=== PATIENT | female | born 1995 | race Caucasian/White ===

== ENCOUNTER 2022-03-11 10:33 | Emergency (ER) | payer OTHER, SELFPAY ==
[2022-03-11 10:41] VITALS: BP 154/102; PULSE 80; RESP 14; TEMP 37; O2SAT 100
--- NOTE | 2022-03-11 10:45 | ED.BACK ---
HPI - Back Pain/Injury General Chief Complaint: Back Pain/Injury Stated Complaint: Back Pain Time Seen by Provider: 03/11/22 10:45 Source: patient Mode of arrival: ambulatory Limitations: no limitations History of Present Illness HPI Narrative: 26-year-old female presents with complaint of right-sided sciatica radiating to right leg. Reports that she has a history of sciatica and back surgery related to bulging disc. States that she had a vaginal 6 weeks ago. Was doing dishes 2 nights ago and felt sudden pain to right SI joint. Denies numbness tingling. No weakness to lower extremities. No loss of bowel or bladder. States that she had a few gabapentin left so she took those and has also been taking ibuprofen. Ambulatory with steady gait. Denies urinary symptoms. All systems reviewed and negative except as noted above. Related Data Home Medications Medication Instructions Recorded Confirmed docusate sodium 100 mg tablet 100 mg PO DAILY 03/11/22 03/11/22 ferrous sulfate 325 mg (65 mg 325 mg PO DAILY 03/11/22 03/11/22 iron) tablet nifedipine 60 mg tablet,extended 60 mg PO DAILY 03/11/22 03/11/22 release Allergies Allergy/AdvReac Type Severity Reaction Status Date / Time No Known Allergies Allergy Verified 03/11/22 10:51 Review of Systems Review of Systems: CONSTITUTIONAL: Denies fever, chills, or sweats. EYES: Denies visual changes, redness, or discharge. ENT: Denies rhinorrhea, congestion, sore throat, or otalgia. CARDIOVASCULAR: Denies chest pain, palpitations, or edema. RESPIRATORY: Denies cough or dyspnea. GASTROINTESTINAL: Denies abdominal pain, nausea, vomiting, or diarrhea. GENITOURINARY: Denies dysuria or hematuria. SKIN: Denies rash or itching. MUSCULOSKELETAL: Reports right-sided back pain with radiation to right leg. NEUROLOGIC: Denies headache, numbness, or weakness. PSYCHIATRIC: Denies anxiety or depression. All other systems reviewed are negative, except as documented in HPI. PMFSH Comments At time of signature, agree with nursing past medical, surgical, social and family history. There is no relevant family history pertinent to the presenting complaint. Exam Narrative: GENERAL: This is a well-nourished, well-developed patient, in no apparent distress. HEAD: normocephalic, atraumatic. EYES: PERRL. Sclera clear/white. Vision is grossly intact. EARS: External ears normal NOSE: External nose normal NECK: Neck supple, non-tender without lymphadenopathy, masses or thyromegaly. CARDIOVASCULAR: Regular rate and rhythm without murmurs, gallops, or rubs. RESPIRATORY: Clear to auscultation. Breath sounds equal bilaterally. No wheezes, rales, or rhonchi. SKIN: warm, Dry, intact with no suspicious lesions or rash, good texture and turgor. NEURO: awake, alert, and oriented to person, place and time. There were no obvious focal neurologic abnormalities. EXTREMITIES: No joint tenderness, effusion, or edema noted. BACK: Right SI joint tenderness on palpation. Full range of motion to back. Positive right straight leg raise. Lower extremity strength 5/5. Course Course Level of Care: Express Care Visit Vital Signs Vital signs: Vital Signs Temperature 37.0 C 03/11/22 10:41 Pulse Rate 80 03/11/22 10:41 Respiratory Rate 14 03/11/22 10:41 Blood Pressure 154/102 H 03/11/22 10:41 Pulse Oximetry 100 03/11/22 10:41 Oxygen Delivery Room Air 03/11/22 10:41 Temperature 37.0 C 03/11/22 10:53 Pulse Rate 80 03/11/22 10:53 Respiratory Rate 14 03/11/22 10:53 Blood Pressure 154/102 H 03/11/22 10:53 Pulse Oximetry 100 03/11/22 10:53 Oxygen Delivery Room Air 03/11/22 10:53 Reviewed MDM - Back Pain/Injury MDM Narrative Medical decision making narrative: Patient is aware of diagnosis, understands and agrees to treatment plan. Anticipatory guidance given. Patient agrees to follow-up as directed and is aware of reasons to seek care at the emergency department.
[2022-03-11 10:53] VITALS: BP 154/102; PULSE 80; RESP 14; TEMP 37; O2SAT 100
== END 2022-03-11 11:01 | disposition home or self-care (01) ==
PROVIDERS: Emergency Provider Nurse Practitioner Family
DX: M54.9 Dorsalgia, unspecified (principal); M54.31 Sciatica, right side; I10 Essential (primary) hypertension
CPT/HCPCS: 99211; G0463

== ENCOUNTER 2024-12-09 16:51 | Emergency (ER) | payer OTHER, SELFPAY ==
--- OUTSIDE RECORDS SUMMARY | 2024-12-09 16:53 | XMS_ITS | Clinical Summary ---
Author Organization [facility] Address [address] [place] [address] Phone Care Team Providers Care Vehicle Care Specialist Name Role Phone Provider, None Primary Care Provider Unavailabl e Allergies No known active allergies Medications methocarbamol (ROBAXIN) 500 MG Tablet Take 2 Tabs by mouth 4 times daily as needed. 60 Tab 8 Active Additional Information Patient not taking.Reported on 07/15/2020 methylPREDNISol one (MEDROL DOSPACK) 4 MG Tablet Therapy Pack See product package insert for dosing schedule 21 Tab 8 Active Additional Information Patient not taking.Reported on 07/15/2020 traMADol (ULTRAM) 50 MG Tablet Take 50 mg by mouth every 6 hours as needed for Pain. Active acetaminophen (TYLENOL) 500 MG Tablet Take 500 mg by mouth every 4 hours as needed for Pain. Active traMADol (ULTRAM) 50 MG Tablet Take 1 Tab by mouth every 6 hours as needed for Pain. 30 Tab 8 Active Additional Information Patient not taking.Reported on 07/15/2020 HYDROcodone-jad taminophen (NORCO) 5-325 MG Tablet Take 1 Tab by mouth every 6 hours as needed for Moderate or more severe pain. 12 Tab 8 Active Additional Information Patient not taking.Reported on 07/15/2020 ibuprofen (MOTRIN) 600 MG Tablet Take 1 Tab by mouth every 6 hours as needed for Moderate or more severe pain. 60 Tab 8 Active Additional Information Patient not taking.Reported on 07/15/2020 GABAPENTIN PO Take by mouth. A ctive MELOXICAM PO Take by mouth. Ac tive predniSONE (DELTASONE) 50 MG Tablet Take 1 Tab by mouth daily. 5 Tab 9 Active Additional Information Patient not taking.Reported on 07/15/2020 HYDROcodone-jad taminophen (NORCO) 5-325 MG Tablet Take 1 Tab by mouth every 6 hours as needed for Moderate or more severe pain. 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 Gender Identity Not on file Sexual Orientation Not on file Last Filed Vital Signs Vital Sign Reading Time Taken Comments Blood Pressure 130/90 07/15/2020 5:21 PM BARBER SHOP OPERATOR Pulse 93 07/15/2020 5:21 PM BARBER SHOP OPERATOR Temperature 36.4 C (97.6 F) 07/15/2020 5:21 PM BARBER SHOP OPERATOR Respiratory Rate 20 07/15/2020 5:21 PM BARBER SHOP OPERATOR Oxygen Saturation 98% 07/15/2020 5:21 PM BARBER SHOP OPERATOR Inhaled Oxygen Concentration - - Weight 110.2 kg (243 lb) 02/04/2019 9:43 PM CDT Height 167.6 cm (5' 6 ) 02/04/2019 9:43 PM CDT Body Mass Index 39.22 02/04/2019 9:43 PM CDT Plan of Treatment Health Maintenance Due Date Last Done Comments Hepatitis C Virus (HCV) Screening 1993 Pap Smear 2014 Cervical Cancer Screening (CCS) 2023 HPV/Cotest 2023 Influenza Immunization (#1) 2024 06/13/2016, 1 09/05/2013 SARS-COV-2 Immunization ( season) 2024 Respiratory Syncytial Virus (RSV) Immunization (Adult) (1 - 1-dose 75+ series) 2068 Hepatitis B Immunization Completed 994, 1993, 1993 Pneumococcal Immunization Combined Aged Out 09/16/2014 No longer eligible based on patient's age to complete this topic DTaP/Tdap/Td Immunization Discontinued 2021, 10/06/2016, 07/06/2014, Additional history exists TdaP Immunization Completed 12/16/2021, , 07/06/2014, Additional history exists Meningococcal Immunization (ACWY) Aged Out No longer eligible based on patient's age to complete this topic Rotavirus Immunization Aged Out No lo nger eligible based on patient's age to complete this topic Insurance MEDICAID [employer]NA [facility] Care Teams Vehicle Care Specialist Relationship Specialty Start Date End Date Provider, None [place] PCP - General 10/04/17
--- OUTSIDE RECORDS SUMMARY | 2024-12-09 16:53 | XMS_ITS | Clinical Summary ---
Author Organization [facility] Address [address] [place] [address] Care Team Providers Care Helicopter Repairer Name Role Phone Unavailable Primary Care Provider Unavailabl e Source Comments [facility],non-owned Affiliates and Associated Physician Practices is amultiple site organization consisting of ambulatory clinics and hospital sitesin [place], [place], [place] and [place]. This disclosure is being madepursuant to the Care Everywhere program and may not contain all information available regarding this patient. Last updated 18.[employer] [facility] Allergies No known active allergies Medications * Be aware that medications may not be up to date on this document. Alwaysverify current medications with the patient. GABAPENTIN PO Active MELOXICAM PO Active Acetaminophen (TYLENOL 8 HOUR PO) Active Active Problems No known active problems Social History Tobacco Use Types Packs/Day Years Used Date Smoking Tobacco: Every Day Smokeless Tobacco: Never Comments Unknown Sex and Gender Information Value Date Recorded Sex Assigned at Not on file Legal Sex Female 11:30 AM CDT Gender Identity Not on file Sexual Orientation Not on file Last Filed Vital Signs Vital Sign Reading Time Taken Comments Blood Pressure - - Pulse - - Temperature - - Respiratory Rate - - Oxygen Saturation - - Inhaled Oxygen Concentration - - Weight 109.3 kg (241 lb) 02/27/2019 1:08 PM CDT Height 167.6 cm (5' 6 ) 02/27/2019 1:08 PM CDT Body Mass Index 38.9 02/27/2019 1:08 PM CDT Plan of Treatment Health Maintenance Due Date Last Done Comments PAP SMEAR 1993 HIV SCREENING 2008 HEPATITIS C SCREENING 05/04/2011 DTAP/TDAP/TD VACCINES (1 - Tdap) 2012 HEPATITIS B VACCINE (1 of 3 - 19+ 3-dose series) 2012 COVID-19 VACCINE (1 - 2023-2 5 season) 2024 DEPRESSION SCREENING 08/30/2024 INFLUENZA VACCINE (Season Ended) 2025 06/13/2016, 07/06/2014 ZOSTER VACCINE (1 of 2) 2043 HIB VACCINE Aged Out No longer eligi ble based on patient's age to complete this topic HPV VACCINE Aged Out No longer eligi ble based on patient's age to complete this topic MENINGOCOCCAL (Group B) VACCINE SHARED DECISION-MAKING Aged Out No longer eligible based on patient's age to complete this topic MENINGOCOCCAL GROUPS A/C/Y/W VACCINE Aged Out No longer eligible b ased on patient's age to complete this topic PNEUMOCOCCAL VACCINE Aged Out No long er eligible based on patient's age to complete this topic Insurance [facility]
--- OUTSIDE RECORDS SUMMARY | 2024-12-09 16:53 | XMS_ITS | Referral Summary ---
Author Organization [facility] Address [address] [place] [address] Care Team Providers Care Servicing Rep Name Role Phone No, Physician Primary Care Provider [phone] Sunny Ritter MD Unavailable Allergies No known active allergies Medications ibuprofen (ADVIL,MOTRIN) 600 mg tabletIndicatio ns:Cramps Take 1 tablet (600 mg total) by mouth every 6 (six) hours as needed for pain 30 tablet 1 02/25/2022 Active escitalopram (LEXAPRO) 10 mg tablet Take 10 mg by mouth daily Active phentermine 37.5 mg capsule Take 37.5 mg by mouth every morning Active NIFEdipine (NIFEdipine XL) 60 mg 24 hr tablet Take 60 mg by mouth daily Active Active Problems Problem Noted Date Diagnosed Date Encounter for sterilization 07/07/2022 Overview (07/07/2022): Added automatically from request for surgery [id number] RhD negative 11/04/2021 Recurring right L5-S1 disc h erniation with right S1 radiculopathy 08/26/2018 S/P right L4-5 and L5-S1 microdiscectomy on 01/1301/13/2018 Immunizations Immunization Administration Dates Next Due Influenza, Trivalent, IM (MDV) 07/06/2014 MMR 02/25/2022(Deferred: No longer n eeded) Pneumococcal Polysaccharide PPV23 09/16/2014 Rho (D) Immune Globulin 01/13/2017,09/15/2014 Tdap 07/06/2014 Social History Tobacco Use Types Packs/Day Years Used Date Smoking Tobacco: Every Day Cigarettes Last attempted to quit: 01/10/2018 Smokeless Tobacco: Never Tobacco Cessation:Ready to Q uit: Not Asked; Counseling Given: Not Answered Comments:between 1/2 pack to 1 pack daily Alcohol Use Standard Drinks/Week Comments No 0 (1 standard drink = 0.6 oz pur e alcohol) AUDIT-C Answer Date Recorded Q1: How often do you have a drink containing alc ohol? Monthly or less 11/09/2022 Q2: How many drinks containi ng alcohol do you have on a typical day when you are drinking? 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 Not on file Not on file Not on file Last Filed Vital Signs Vital Sign Reading Time Taken Comments Blood Pressure 120/70 02/25/2022 8:00 AM CDT Pulse 78 02/25/2022 8:00 AM CDT Temperature 36.7 C (98.1 F) 02/25/2022 8:00 AM CDT Respiratory Rate 18 02/25/2022 8:00 AM CDT Oxygen Saturation 98% 02/24/2022 7:30 AM CDT Inhaled Oxygen Concentration - - Weight 112.9 kg (249 lb) 02/17/2022 4:35 PM CDT Height 167.6 cm (5' 6 ) 02/17/2022 4:35 PM CDT Body Mass Index 40.19 02/17/2022 4:35 PM CDT Plan of Treatment Not on file Insurance [facility] [place] [employer] [employer] Advance Directives For more information, please contact: [phone] * Full Code (Latest Code Status on File) Date Activated Date Inactivated Comments 02/24/2022 5:06 AM 02/25/2022 4:41 PM * Full Code Date Activated Date Inactivated Comments 02/23/2022 6:35 PM 02/24/2022 5:06 AM Full CPR in case of cardiopulmonary arrest * Full Code Date Activated Date Inactivated Comments 02/23/2022 4:23 PM 02/23/2022 6:35 PM Full CPR in case of cardiopulmonary arrest Care Teams Servicing Rep Relationship Specialty Start Date End Date No, Physician PCP - General 10/04/17 Sunny Ritter MD [address] [place] [address] [place] [address] Conveyor Tender Obstetrics and Gynecology 02/25/22
--- OUTSIDE RECORDS SUMMARY | 2024-12-09 16:53 | XMS_ITS | Data Portability ---
Author Organization [facility] PIEROTom Causey Address [address] [place] [address] Care Team Providers Care Waiter/Waitress Take Out Name Role Phone NEVA BUSTOS Primary Care Provider Unavailab le Assessment No assessment recorded. Plan of Treatment Reminders Order Date Submit Date Provider Last Modified By Organization Details Last Modified Time Details Appointments None recorded. Lab CBC w/ auto diff 2022 023 [facility], [address] [address], [place], [address], 3 20:35:57 vitamin D, 25-hydroxy, total, serum 2022 023 [facility], [address] [place] [address] 2, [place], [address], 3 07:37:42 lipid panel, serum 2022 023 [facility], [address] [place] [address] 2, [place], [address], 3 20:35:55 CMP, serum or plasma 2022 023 [facility], [address] [facility], [place], [address], 3 20:35:56 Referral None recorded. Procedures None recorded. Surgeries salpingecto my, laparoscopi c (SURG) 2021 023 travis [facility] ([facility]), [address] [place] [address] [place], [address], 2 15:46:08 Imaging None recorded. Medication Orders nicotine 14 mg/24 hr daily transdermal patch 2022 023 [id number] [address] [place], [address], 3 11:53:16 nifedipine ER 60 mg tablet,exte nded release 24 hr 2022 [address]23 [id number] [address] [place], [address], 3 09:55:53 escitalopra m 10 mg tablet 2022 023 [id number] [address] [place], [address], 3 11:43:58 escitalopra m 5 mg tablet 2022 023 [id number] [address] [place], [address], 3 11:43:58 Procardia XL 90 mg tablet,exte nded release 2021 022 [id number] [place], [address], 3 09:55:56 Patient TargetsNo targets recorded. Patient InstructionsNo instructions recorded. Reason for Referral None Reported. Results Created Date Observation Date Name Description Value Unit Range Abnormal Flag Note LastModifiedBy Organization Detail LastModifiedTime 02/11/20 22 02/10/2022 urina lysis , dipst ick Leukocytes Negati ve Not Available In-Office Order Internal Use Only DO Not Attach Compendium DO Not Attach Compendium, Do Not Delete/merge, [id number] 02/09/2022 10:53:46 02/11/20 22 02/10/2022 urina lysis , dipst ick Nitrite negati ve Not Available In-Office Order Internal Use Only DO Not Attach Compendium DO Not Attach Compendium, Do Not Delete/merge, 02/09/2022 10:53:46 02/11/20 22 02/10/2022 urina lysis , dipst ick Urobilinogen 1 Not Available In-Of fice Order Internal Use Only DO Not Attach Compendium DO Not Attach Compendium, Do Not Delete/merge, 02/09/2022 10:53:46 02/11/20 22 02/10/2022 urina lysis , dipst ick Protein 30 Not Available In-Office Order Internal Use Only DO Not Attach Compendium DO Not Attach Compendium, Do Not Delete/merge, 02/09/2022 10:53:46 02/11/20 22 02/10/2022 urina lysis , dipst ick pH 6.5 Not Available In-Office Order Internal Use Only DO Not Attach Compendium DO Not Attach Compendium, Do Not Delete/merge, 02/09/2022 10:53:46 02/11/20 22 02/10/2022 urina lysis , dipst ick Blood Negati ve Not Available In-Office Order Internal Use Only DO Not Attach Compendium DO Not Attach Compendium, Do Not Delete/merge, 02/09/2022 10:53:46 02/11/20 22 02/10/2022 urina lysis , dipst ick Specific Switchback 1.020 Not Available In-Off ice Order Internal Use Only DO Not Attach Compendium DO Not Attach Compendium, Do Not Delete/merge, 02/09/2022 10:53:46 02/11/20 22 02/10/2022 urina lysis , dipst ick Ketone Negati ve Not Available In-Office Order Internal Use Only DO Not Attach Compendium DO Not Attach Compendium, Do Not Delete/merge, 02/09/2022 10:53:46 02/11/20 22 02/10/2022 urina lysis , dipst ick Bilirubin Negati ve Not Available In-Office Order Internal Use Only DO Not Attach Compendium DO Not Attach Compendium, Do Not Delete/merge, 02/09/2022 10:53:46 02/11/20 22 02/10/2022 urina lysis , dipst ick Glucose Negati ve Not Available In-Office Order Internal Use Only DO Not Attach Compendium DO Not Attach Compendium, Do Not Delete/merge, 02/09/2022 10:53:46 02/11/20 22 02/10/2022 urina lysis , dipst ick Appearance Clear Not Available In-Offi ce Order Internal Use Only DO Not Attach Compendium DO Not Attach Compendium, Do Not Delete/merge, 02/09/2022 10:53:46 02/11/20 22 02/10/2022 urina lysis , dipst ick Color Yellow Not Available In-Office Order Internal Use Only DO Not Attach Compendium DO Not Attach Compendium, Do Not Delete/merge, 02/09/2022 10:53:46 02/18/20 22 02/17/2022 urina lysis , dipst ick Leukocytes Trace Not Available In-Offi ce Order Internal Use Only DO Not Attach Compendium DO Not Attach Compendium, Do Not Delete/merge, 02/17/2022 09:25:25 02/18/20 22 02/17/2022 urina lysis , dipst ick Nitrite negati ve Not Available In-Office Order Internal Use Only DO Not Attach Compendium DO Not Attach Compendium, Do Not Delete/merge, 02/17/2022 09:25:25 02/18/20 22 02/17/2022 urina lysis , dipst ick Urobilinogen .2 Not Available In-Of fice Order Internal Use Only DO Not Attach Compendium DO Not Attach Compendium, Do Not Delete/merge, 02/17/2022 09:25:25 02/18/20 22 02/17/2022 urina lysis , dipst ick Protein Negati ve Not Available In-Office Order Internal Use Only DO Not Attach Compendium DO Not Attach Compendium, Do Not Delete/merge, 02/17/2022 09:25:25 02/18/20 22 02/17/2022 urina lysis , dipst ick pH 7.0 Not Available In-Office Order Internal Use Only DO Not Attach Compendium DO Not Attach Compendium, Do Not Delete/merge, 02/17/2022 09:25:25 02/18/20 22 02/17/2022 urina lysis , dipst ick Blood Negati ve Not Available In-Office Order Internal Use Only DO Not Attach Compendium DO Not Attach Compendium, Do Not Delete/merge, 02/17/2022 09:25:25 02/18/20 22 02/17/2022 urina lysis , dipst ick Specific Switchback 1.030 Not Available In-Off ice Order Internal Use Only DO Not Attach Compendium DO Not Attach Compendium, Do Not Delete/merge, 02/17/2022 09:25:25 02/18/20 22 02/17/2022 urina lysis , dipst ick Ketone Negati ve Not Available In-Office Order Internal Use Only DO Not Attach Compendium DO Not Attach Compendium, Do Not Delete/merge, 02/17/2022 09:25:25 02/18/20 22 02/17/2022 urina lysis , dipst ick Bilirubin Negati ve Not Available In-Office Order Internal Use Only DO Not Attach Compendium DO Not Attach Compendium, Do Not Delete/merge, 02/17/2022 09:25:25 02/18/20 22 02/17/2022 urina lysis , dipst ick Glucose Negati ve Not Available In-Office Order Internal Use Only DO Not Attach Compendium DO Not Attach Compendium, Do Not Delete/merge, 02/17/2022 09:25:25 02/18/20 22 02/17/2022 urina lysis , dipst ick Appearance Slight ly Cloudy Not Available In-Office Order Internal Use Only DO Not Attach Compendium DO Not Attach Compendium, Do Not Delete/merge, 02/17/2022 09:25:25 02/18/20 22 02/17/2022 urina lysis , dipst ick Color Yellow Not Available In-Office Order Internal Use Only DO Not Attach Compendium DO Not Attach Compendium, Do Not Delete/merge, 02/17/2022 09:25:25 09/24/19 23 09/24/2022 LIPID PANEL cholesterol, total 205.2 mg/dL 140.0- 200.0 above high normal Not Available [facility] [address] [place] [address], [address], 09/24/2022 20:35:55 09/24/19 23 09/24/2022 LIPID PANEL triglyceride s 159 mg/dL <=150 above high normal Not Available [facility] Department [address] [place] [address], [address], 09/24/2022 20:35:55 09/24/19 23 09/24/2022 LIPID PANEL HDL cholesterol 54.7 mg/dL 40.0-1 00.0 Not Available [facility] Department [address] [place] [address], [address], 09/24/2022 20:35:55 09/24/19 23 09/24/2022 LIPID PANEL VLDL cholesterol priya 31.80 mg/dL 5.00-4 0.00 Not Available [facility] Department [address] [place] [address], [address], 09/24/2022 20:35:55 09/24/19 23 09/24/2022 LIPID PANEL LDL chol calc ([facility]) 122.5 Not Available [facility] Department [address] [place] [address], [address], 09/24/2022 20:35:55 09/24/19 23 09/24/2022 COMP. METAB OLIC PANEL (14) glucose 85 mg/dL 65-99 ANION GP 23.0 mmol/ L N OSMOL 285.0 mOsM/ L N REFER ENCE RANGE : 275.0 -301. 0 Not Available [facility] Department [address] [place], [address], 09/24/2022 20:35:56 09/24/19 23 09/24/2022 COMP. METAB OLIC PANEL (14) BUN 9 mg/dL 8-26 Not Available [facility] Department [address] [place] [address], [address], 09/24/2022 20:35:56 09/24/19 23 09/24/2022 COMP. METAB OLIC PANEL (14) creatinine 0.72 mg/dL 0.50-1 .40 Not Available [facility] [address] [place], [address], 09/24/2022 20:35:56 09/24/19 23 09/24/2022 COMP. METAB OLIC PANEL (14) eGFR 116 mL/mi n/1.7 3 >=60 Not Available [facility] Department [address] [place] [address], [address], 09/24/2022 20:35:56 09/24/19 23 09/24/2022 COMP. METAB OLIC PANEL (14) BUN/creatini ne ratio 12.6 Not Available [facility] Department [address] [place] [address], [address], 09/24/2022 20:35:56 09/24/19 23 09/24/2022 COMP. METAB OLIC PANEL (14) sodium 144.0 mmol/ L 136.0- 144.0 Not Available [facility] Department [address] [place] [address], [address], 09/24/2022 20:35:56 09/24/19 23 09/24/2022 COMP. METAB OLIC PANEL (14) potassium 4.6 mmol/ L 3.5-5. 3 Not Available [facility] Department [address] [place], [address], 09/24/2022 20:35:56 09/24/19 23 09/24/2022 COMP. METAB OLIC PANEL (14) chloride 105 mmol/ l 101-11 1 Not Available [facility] Department [address] [place] [address], [address], 09/24/2022 20:35:56 09/24/19 23 09/24/2022 COMP. METAB OLIC PANEL (14) carbon dioxide, total 20.6 mmol/ L 21.0-3 2.0 below low normal Not Available [facility] [address] [place], [address], 09/24/2022 20:35:56 09/24/19 23 09/24/2022 COMP. METAB OLIC PANEL (14) calcium 9.7 mg/dL 8.2-10 .0 Not Available [facility] [address] [place], [address], 09/24/2022 20:35:56 09/24/19 23 09/24/2022 COMP. METAB OLIC PANEL (14) protein, total 7.3 g/dL 6.7-8. 2 Not Available [facility] [address] [place], [address], 09/24/2022 20:35:56 09/24/19 23 09/24/2022 COMP. METAB OLIC PANEL (14) albumin 4.6 g/dL 3.5-5. 5 Not Available [facility] [address] [place], [address], 09/24/2022 20:35:56 09/24/19 23 09/24/2022 COMP. METAB OLIC PANEL (14) globulin, total 2.7 g/dL 1.5-4. 5 Not Available [facility] [address] [place], [address], 09/24/2022 20:35:56 09/24/19 23 09/24/2022 COMP. METAB OLIC PANEL (14) A/G ratio 1.7 Not Available [facility] Department [address] [place], [address], 09/24/2022 20:35:56 09/24/19 23 09/24/2022 COMP. METAB OLIC PANEL (14) bilirubin, total 0.2 mg/dL 0.0-1. 2 Not Available [facility] [address] [place], [address], 09/24/2022 20:35:56 09/24/19 23 09/24/2022 COMP. METAB OLIC PANEL (14) alkaline phosphatase 90.2 IU/L 42.0-1 21.0 Not Available [facility] [address] [place], [address], 09/24/2022 20:35:56 09/24/19 23 09/24/2022 COMP. METAB OLIC PANEL (14) AST (SGOT) 13.1 U/L 10.0-4 2.0 Not Available [facility] [address] [place], [address], 09/24/2022 20:35:56 09/24/19 23 09/24/2022 COMP. METAB OLIC PANEL (14) ALT (SGPT) 15.6 U/L 10.0-6 0.0 Not Available [facility] [address] [place], [address], 09/24/2022 20:35:56 09/24/19 23 09/24/2022 CBC WITH DIFFE RENTI AL/PL ATELE T WBC 8.5 K/uL 3.4-10 .8 Not Available [facility] [address] [place], [address], 09/24/2022 20:35:57 09/24/19 23 09/24/2022 CBC WITH DIFFE RENTI AL/PL ATELE T RBC 5.2 M/uL 4.2-5. 4 Not Available [facility] [address] [place], [address], 09/24/2022 20:35:57 09/24/19 23 09/24/2022 CBC WITH DIFFE RENTI AL/PL ATELE T hemoglobin 14.4 g/dL 11.5-1 5.5 Not Available [facility] [address] [place], [address], 09/24/2022 20:35:57 09/24/19 23 09/24/2022 CBC WITH DIFFE RENTI AL/PL ATELE T hematocrit 44.0 % 36.0-4 8.0 Not Available [facility] [address] [place], [address], 09/24/2022 20:35:57 09/24/19 23 09/24/2022 CBC WITH DIFFE RENTI AL/PL ATELE T MCV 85 fL 80-95 Not Available [facility] Department [address] [place], [address], 09/24/2022 20:35:57 09/24/19 23 09/24/2022 CBC WITH DIFFE RENTI AL/PL ATELE T MCH 28 pg 27-32 Not Available [facility] [address] [place], [address], 09/24/2022 20:35:57 09/24/19 23 09/24/2022 CBC WITH DIFFE RENTI AL/PL ATELE T MCHC 33 g/dL 32-36 Not Available [facility] [address] [place], [address], 09/24/2022 20:35:57 09/24/19 23 09/24/2022 CBC WITH DIFFE RENTI AL/PL ATELE T RDW 13.9 % 11.5-1 4.5 Not Available [facility] [address] [place], [address], 09/24/2022 20:35:57 09/24/19 23 09/24/2022 CBC WITH DIFFE RENTI AL/PL ATELE T platelets 292 K/uL 155-37 9 MPV 11.0 FL 8.9-1 2.7 N Not Available [facility] [address] [place], [address], 09/24/2022 20:35:57 09/24/19 23 09/24/2022 CBC WITH DIFFE RENTI AL/PL ATELE T neutrophils 52.0 % 40.0-7 4.0 Not Available [facility] [address] [place], [address], 09/24/2022 20:35:57 09/24/19 23 09/24/2022 CBC WITH DIFFE RENTI AL/PL ATELE T lymphs 37.1 % 14.0-4 6.0 Not Available [facility] [address] [place], [address], 09/24/2022 20:35:57 09/24/19 23 09/24/2022 CBC WITH DIFFE RENTI AL/PL ATELE T monocytes 8.7 % 4.0-12 .0 Not Available [facility] [address] [place], [address], 09/24/2022 20:35:57 09/24/19 23 09/24/2022 CBC WITH DIFFE RENTI AL/PL ATELE T eos 1 % 0-5 Not Available [facility] [address] [place], [address], 09/24/2022 20:35:57 09/24/19 23 09/24/2022 CBC WITH DIFFE RENTI AL/PL ATELE T basos 0.8 % 0.0-1. 0 Not Available [facility] [address] [place], [address], 09/24/2022 20:35:57 09/24/19 23 09/24/2022 CBC WITH DIFFE RENTI AL/PL ATELE T neutrophils (absolute) 4.4 K/uL 1.4-7. 0 Not Available [facility] [address] [place], [address], 09/24/2022 20:35:57 09/24/19 23 09/24/2022 CBC WITH DIFFE RENTI AL/PL ATELE T lymphs (absolute) 3.2 K/uL 0.7-3. 1 above high normal Not Available [facility] [address] [place], [address], 09/24/2022 20:35:57 09/24/19 23 09/24/2022 CBC WITH DIFFE RENTI AL/PL ATELE T monocytes(ab solute) 0.7 K/uL 0.1-0. 9 Not Available [facility] [address] [place], [address], 09/24/2022 20:35:57 09/24/19 23 09/24/2022 CBC WITH DIFFE RENTI AL/PL ATELE T eos (absolute) 0.1 K/uL 0.0-0. 4 Not Available [facility] [address] [place], [address], 09/24/2022 20:35:57 09/24/19 23 09/24/2022 CBC WITH DIFFE RENTI AL/PL ATELE T baso (absolute) 0.1 K/uL 0.0-0. 3 Not Available [facility] Department [address] [place], [address], 09/24/2022 20:35:57 09/24/19 23 09/24/2022 CBC WITH DIFFE RENTI AL/PL ATELE T immature granulocytes 0.1 % Not Available [facility] Department [address] [place], [address], 09/24/2022 20:35:57 09/24/19 23 09/24/2022 CBC WITH DIFFE RENTI AL/PL ATELE T immature grans (abs) 0.0 K/uL Not Available [facility] Department [address] [place], [address], 09/24/2022 20:35:57 09/24/19 23 09/24/2022 CBC WITH DIFFE RENTI AL/PL ATELE T NRBC 0 % Not Available [facility] Department [address] [place], [address], 09/24/2022 20:35:57 09/24/19 23 09/25/2022 VITAM IN D, 25-HY DROXY vitamin D, 25-hydroxy 15.2 NG/mL 30.0-1 00.0 below low normal Vitam in D defic iency has been defin ed by the Insti tute of Medic ine and an Endoc rine Socie ty pract ice guide line as a level of serum 25-OH vitam in D less than 20 ng/mL (1,2) . The Endoc rine Socie ty went on to furth er defin e vitam in D insuf ficie ncy as a level betwe en 21 and 29 ng/mL (2). 1. IOM (Inst itute of Medic ine). 2010. Brigida ry refer ence arash es for calci um and D. Hazel ohara [place]: [facility] . 2. Surjit scott MF, Selvin lopez [place], [place] off-F errar i BAJWA, et al. Evalu ation , treat ment, and preve ntion of vitam in D defic iency : an Endoc rine Socie ty clini priya pract ice guide line. JCEM. 2010; 96(7) :1911 -30. Not Available [facility] ([facility]) [address] [facility], [place], [address], 09/25/2022 07:37:42 Result Notes None recorded. Problems Name Problem SNOMED Code Status Onset Date Resolution Date Notes Provider Name and Address Organization Details Recorded Time 74523328 Completed 202004/24/2021 Constance Roper LPN [place], [place] - [facility] 2 13:49:45 Obesity 793522307 Completed Weight gain 11-20 lbs disc. Lynne King [place], [place] [facility] 1 15:06:20 Smoker 64960326 Completed SOFÍA Rust, [place] - [facility] 1 15:06:20 Grand multipara 18425572 Completed Lynne King [place] [facility] 1 15:06:20 Sterilizat ion requested 791133046 Completed 2020 Lynne King [place] [facility] 1 15:06:20 RhD negative 683154525 Completed Rhogam @ 28 wks Lynne King [place], [place] [facility] 1 15:06:20 23643870 Completed 202006/08/2022 Constance Roper LPN [place] [facility] 2 13:49:45 RhD negative 408333030 Completed s/p rhogam at 28 weeks Constance Roper LPN [place] [facility] 2 13:49:34 Abnormalit y of heart 439005489 Completed 202109/24/2022 Normal echo NEVA BUSTOS MD Attn: Gatito dong,[address] [place], [address], [place] - [facility] 3 11:54:46 Abnormalit y of heart 935213290 Completed 2021 Normal echo Constance Roper LPN [place] [facility] 2 13:49:34 Past history of gestationa l hypertensi on 499787855 Active 2022 NEVA BUSTOS MD Attn: Gatito dong,[address] [place], [address], [place] [facility] 3 11:56:10 Anxiety disorder 780987493 Active 2022 NEVA BUSTOS MD Attn: Gatito dong,[address] [place], [address], [place] [facility] 3 11:56:08 Nicotine dependence with current use 110430354 Active 2022 NEVA BUSTOS MD Attn: Gatito dong,[address] [place], [address], [place] [facility] 3 11:56:12 Lymphadeno rizwan 10871688 Completed 09/24/2022 NEVA BUSTOS MD Attn: Gatito dong,[address] [place], [address], [place] [facility] 3 11:54:44 Notes:lump under right armpi t Problem Notes None recorded. Procedures Surgical History Date Name Laterality Status Provider Name and Address Organization Details Recorded Time 1 Date of Last Pap Smear completed N[facility] Conde [facility] 09/24/2022 11:05:52 8 Back Surgery completed Lynne King [facility] 01/23/2021 09:53:25 Imaging Results None recorded. Procedure Notes None recorded. Medical Equipment None Reported. Allergies No known drug allergies Medications Name Sig Start Date Stop Date Status Note LastModified by Organization Details LastModified Time Prescriptio n - New 06/17 completed Not Available Not Available Not Available cyclobenzap rine 10 mg tablet TAKE 1 TABLET BY MOUTH THREE TIMES A DAY NEEDED FOR MUSCLE SPASM 06/17 completed Not Available Not Available Not Available amoxicillin 500 mg capsule TAKE ONE CAPSULE BY MOUTH FOUR TIMES A DAY UNTIL GONE 06/17 completed Not Available Not Available Not Available methocarbam ol 500 mg tablet 01/23 completed Not Available Not Available Not Available prednisone 10 mg tablet 01/23 completed Not Available Not Available Not Available nicotine 14 mg/24 hr daily transdermal patch APPLY 1 PATCH DAILY TO SKIN active Not Available Not Available No t Available Lidocaine Viscous 2 % mucosal solution USE 5ML ON TOOTH Q 4 H PRF TOOTH ACHE 01/23 completed Not Available Not Available Not Available hydrocodone 5 mg-acetamin ophen 325 mg tablet 01/23 completed Not Available Not Available Not Available meloxicam 15 mg tablet 01/23 completed Not Available Not Available Not Available prednisone 20 mg tablet TAKE 3 TABLETS TODAY, THEN 2 TABLETS DAILY FOR 3 DAYS THEN 1 TABLET DAILY FOR 3 DAYS. 06/17 completed Not Available Not Available Not Available metronidazo le 500 mg tablet active Not Available Not Available Not Available acetaminoph en 300 mg-codeine 30 mg tablet TK 1 T PO QID PRN P 01/23 completed Not Available Not Available Not Available hydrocodone 10 mg-acetamin ophen 325 mg tablet TAKE ONE TABLET BY MOUTH FOUR TIMES A DAY NEEDED FOR PAIN 06/17 completed Not Available Not Available Not Available tramadol 50 mg tablet 01/23 completed Not Available Not Available Not Available Macrobid 100 mg capsule Take 1 capsule every 12 hours by oral route. 02/04 completed Not Available Not Available Not Available Vitamin tablet Take 1 tablet every day by oral route. 01/23 completed Not Available Not Available Not Available oxycodone-a cetaminophe n 5 mg-325 mg tablet 01/23 completed Not Available Not Available Not Available amoxicillin 875 mg tablet TAKE 1 TABLET BY MOUTH TWICE A DAY FOR 10 DAYS active Not Available Not Available No t Available methocarbam ol 750 mg tablet 01/23 completed Not Available Not Available Not Available nifedipine ER 60 mg tablet,exte nded release 24 hr TAKE 1 TABLET BY MOUTH EVERY DAY 01/26 completed Not Available Not Available Not Available nifedipine ER 90 mg tablet,exte nded release 24 hr TAKE 1 TABLET BY MOUTH EVERY DAY 01/26 completed Not Available Not Available Not Available hydrocodone 7.5 mg-acetamin ophen 325 mg tablet TAKE 1 TABLET BY MOUTH EVERY 4 TO 6 HOURS NEEDED FOR PAIN active Not Available Not Available No t Available erythromyci n 5 mg/gram (0.5 %) eye ointment APPLY 1 CM RIBBON INTO LOWER EYELID OF AFFECTED EYE 3 TIMES A DAY 09/24 completed Not Available Not Available Not Available ferrous sulfate 325 mg (65 mg iron) tablet TAKE 1 TABLET BY MOUTH EVERY DAY WITH BREAKFAST 06/17 completed Not Available Not Available Not Available misoprostol 200 mcg tablet Insert 4 tablets vaginally ever 3 hours as needed until tissue passes. Maximum of 3 doses 09/30 completed Not Available Not Available Not Available docusate sodium 100 mg capsule TAKE 1 CAPSULE BY MOUTH TWICE A DAY NEEDED FOR CONSTIPAT ION 06/17 completed Not Available Not Available Not Available gabapentin 300 mg capsule 01/23 completed Not Available Not Available Not Available etodolac 400 mg tablet active Not Available Not Available Not Available ibuprofen 600 mg tablet TAKE 1 TABLET BY MOUTH EVERY 6 HOURS NEEDED FOR PAIN active Not Available Not Available No t Available methylpredn isolone 4 mg tablets in a dose pack 01/23 completed Not Available Not Available Not Available phentermine 37.5 mg capsule Take 1 capsule every day by oral route. active Not Available Not Available No t Available naproxen 500 mg tablet 01/23 completed Not Available Not Available Not Available diazepam 5 mg tablet 01/23 completed Not Available Not Available Not Available amoxicillin 875 mg-potassiu m clavulanate 125 mg tablet TAKE 1 TABLET BY MOUTH TWICE A DAY FOR 10 DAYS active Not Available Not Available No t Available oxycodone 5 mg tablet 01/23 completed Not Available Not Available Not Available Vitamin 27 mg iron-0.8 mg tablet Take 1 tablet by oral route. 02/04 completed Not Available Not Available Not Available escitalopra m 10 mg tablet TAKE 1 TABLET BY MOUTH EVERY DAY. CALL FOR [facility] NT FOR FURTHER REFILLS. 2022 active Not Available Not Available Not Altagracia suazo Sprintec (28) 0.25 mg-0.035 mg tablet active Not Available Not Available Not Available escitalopra m 5 mg tablet TAKE 1 TABLET BY MOUTH EVERY DAY FOR 7 DAYS active Not Available Not Available No t Available chlorhexidi ne gluconate 0.12 % mouthwash RINSE AND GARGLE 15 ML PO OR THROAT BID FOR 7 DAYS 01/23 completed Not Available Not Available Not Available 06/17 completed Not Available Not Available Not Available RhoGAM Ultra-Filte red PLUS 1,500 unit (300 mcg) intramuscul ar syringe Inject 1 syringe by intramusc ular route. 09/24 completed Not Available Not Available Not Available Vitals Date Recorded Body height Systolic blood pressure Diastolic blood pressure Provider Name and Address Organization Details Last Updated DateTime 03/12/2022 167.64 cm 158 mm[Hg] 90 mm[Hg] Constance Roper LPN [place] [facility] 03/12/2022 11:41:50 Date Recorded Body height Systolic blood pressure Diastolic blood pressure Provider Name and Address Organization Details Last Updated DateTime 03/23/2022 167.64 cm 118 mm[Hg] 86 mm[Hg] Janie Holliday [place] [facility] 03/23/2022 11:04:11 Date Recorded Body height Body mass index (BMI) Body weight Systolic blood pressure Diastolic blood pressure Provider Name and Address Organization Details Last Updated DateTime 06/17/2022 167.64 cm 37 kg/m2 872980.6 5 g 132 mm[Hg] 78 mm[Hg] Amanda JasenSOFÍA bernard [facility] 2 09:44:43 Date Recorded Body height Body mass index (BMI) Body weight Body temperature Oxygen saturation Oxygen saturation in Arterial blood by Pulse oximetry Heart rate Systolic blood pressure Diastolic blood pressure Provider Name and Address Organization Details Last Updated DateTime 3 167.64 cm 36.5 kg/m2 028307. 98 g 97.8 [degF] 97 % 97 % 76 /min 122 mm[Hg] 88 mm[Hg] Nora Conde [facility] 3 11:09:56 Date Recorded Body height Body mass index (BMI) Body weight Oxygen saturation Oxygen saturation in Arterial blood by Pulse oximetry Heart rate Body temperature Systolic blood pressure Diastolic blood pressure Provider Name and Address Organization Details Last Updated DateTime 3 167.64 cm 37.5 kg/m2 334327. 23 g 96 % 96 % 80 /min 97.3 [degF] 125 mm[Hg] 89 mm[Hg] Nora Conde MA [facility] 3 11:36:16 Social History Question Answer Notes LastModified by Organizat ion Details LastModified Time Tobacco Smoking Status Current Every Day Smoker Lynne Petalkellee case [facility] 12/16/2015 15:05:30 Do You Have An Advance Directive? No [email or web address] Information not available 06/17/2022 What Is Your Level Of Alcohol Consumption? Occasional Information not available 09/24/2022 Is Blood Transfusion Acceptable In An Emergency? Yes Information not available 12/16/2015 What Is Your Level Of Caffeine Consumption? Heavy Information not available 12/16/2015 Live With Cats/exposure To Cat Litter No Information not available 06/11/2016 How Much Tobacco Do You Chew? None Information not available 12/16/2015 In The 14 Days Before Symptom Onset, Have You Had Close Contact With A Laboratory-confir med COVID-19 While That Case Was Ill? No Information not available 01/23/2021 In The 14 Days Before Symptom Onset, Have You Had Close Contact With A Person Who Is Under Investigation For COVID-19 While That Person Was Ill? No Information not available 01/23/2021 Have You Been To An Area Known To Be High Risk For COVID-19? No Information not available 01/23/2021 Are You Currently Employed? Yes Information not available 12/16/2015 What Type Of Diet Are You Following? REGULAR Information not available 12/16/2015 Which Illicit Or Recreational Drugs Have You Used? No Information not available 12/16/2015 Education 10 Information no t available 12/16/2015 What Is The Highest Grade Or Level Of School You Have Completed Or The Highest Degree You Have Received? 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 No [email or web address] Information no t available 02/04/2021 Frequent Air Travel No Information not available 06/11/2016 Illicit Drugs Pre- None Information not available 06/11/2016 Live Alone Or With Others? With Others Information not available 12/16/2015 Marital Status Single Informatio n not available 06/11/2016 What Was The Date Of Your Most Recent Tobacco Screening? 09/24/2022 Information not available 09/24/2022 How Many Children Do You Have? 5 Information not available 09/24/2022 What Is Your Current Pack Years? 10-19packyears Information not available 01/23/2021 Performs Monthly Self-breast Exam? No Information no t available 12/16/2015 Do You Have Any Pets? No Information not available 01/23/2021 Do You Use Protection During Sex? No Information not available 12/16/2015 What Is Your Relationship Status? Single Information not available 12/16/2015 Do You Use Your Seat Belt Or Car Seat Routinely? Yes Information not available 01/23/2021 Seat Belts Used Routinely Yes Information not available 12/16/2015 Are You Sexually Active? Yes Information not available 12/16/2015 Do You Have Smoke And Carbon Monoxide Detectors In Your Home? Yes Information not available 06/11/2016 At What Age Did You Start Smoking Tobacco? 12 Information not available 12/16/2015 Are You Passively Exposed To Smoke? Yes Information no t available 01/23/2021 How Much Tobacco Do You Smoke? 0.5 PPD Information not available 12/16/2015 Smoking Pre- Yes Information not available 06/11/2016 General Stress Level Low Information not available 12/16/2015 Do You Feel Stressed (tense, Restless, Nervous, Or Anxious, Or Unable To Sleep At Night)? [id number] Information not available 01/23/2021 Do You Use Any Illicit Or Recreational Drugs? No Information not available 01/23/2021 Do You Use Sunscreen Routinely? Yes Information not available 12/16/2015 Has Tobacco Cessation Counseling Been Provided? Yes Information not available 01/23/2021 On What Date Was Tobacco Cessation Counseling Provided? 09/24/2022 Information not available 09/24/2022 How Many Years Have You Smoked Tobacco? 13 Information not available 01/23/2021 Do You Or Have You Ever Used Any Other Forms Of Tobacco Or Nicotine? No Information not available 01/23/2021 Sex: Female Functional Status Question Answer Note LastModified by Organization D etails LastModified Time What is your exercise level? None Information not available 01/23/2021 Mental Status None recorded. Family History Relationship Description Onset Age of this Age Resolved Age Notes LastModified by Organization Details LastModified Time Maternal Grandfather Diabetes mellitus [email or web address] Not available 2015 10:36:17 Paternal Grandfather Malignant tumor of colon [email or web address] Not available 2015 10:36:17 Paternal Grandfather Malignant tumor of lung crexfalkner Not available 2015 10:36:17 Paternal Grandfather Malignant neoplasm of bone crexfalkner Not available 2015 10:36:17 Paternal Uncle Malignant tumor of pharynx crexfalkner Not available 2015 10:36:17 Medical History Condition Response Other N High Blood Pressure N Breast Cancer N Thyroid Problems N Kidney or Bladder Problems N GI Problems N Depression N Blood Clots N Lung Disease N Acne Y Eating Disorder N Breast Problem N Anemia N Anesthesia Complications N Headaches/Migraines N Anxiety Disorder N Diabetes N Ovarian Cancer N Muscle, Joint, or Bone Problems N Blood Transfusions N Seizures/Epilepsy N Polyps N Infertility N Acid Reflux (GERD) N Cancer N Abuse/Domestic Violence N Asthma N Endometriosis N High Cholesterol N Hepatitis N Liver Disease N Heart Disease N Pre-Eclampsia N Osteoporosis N Gynecological History Statement/Question Response Abnormal Pap N Flow Heavy Date of LMP 08/27/2022 On BCP's at Conception? N STIs/STDs N HPV Vaccine N Duration of Flow (days) 5 Most Recent Mammogram Age at Menarche 11 Current Control Method None Age at First Child 15 Sexually Active? Y Menses Monthly Y Date of Last Pap Smear 08/07/2021 Sexual Problems? N LMP Definite Desired Control Method Sterilizati on Obstetrics History GPAL:G 7 P 5 0 2 4 Type Value Multiple Births 0 Full Term 5 Induced 1 Spontaneous 1 Premature 0 Living 4 Ectopics 0 Total 7 Immunizations Vaccine Type Date Status Note Provider Nam e and Address Organization Details Recorded Time OPV 4 completed NEVA BUSTOS MD Attn: Accounting, [address] [place], [address], [place] [facility] 09/24/2022 11:57:11 Hep B, adolescent or pediatric 4 completed NEVA BUSTOS MD Attn: Accounting, [address] [place], [address], [place] [facility] 09/24/2022 11:57:11 Tdap 8 completed NEVA BUSTOS MD Attn: [address] [place], [address], [place] [facility] 09/24/2022 11:57:11 Hep B, adolescent or pediatric 3 completed NEVA BUSTOS MD Attn: Accounting[address] [place], [address], [place] [facility] 09/24/2022 11:57:11 OPV 4 maximilian BUSTOS MD Attn: Accounting[address] [place], [address], [place] [facility] 09/24/2022 11:57:11 DTP-Hib 3 completed NEVA BUSTOS MD Attn: Accounting[address] [facility], [place], [address], [place] [facility] 09/24/2022 11:57:11 DTP-Hib 4 completed NEVA BUSTOS MD Attn: Accounting[address] [facility], [place], [address], [place] [facility] 09/24/2022 11:57:11 DTP-Hib 5 completed NEVA BUSTOS MD Attn: Accounting[address] [facility], [place], [address], [place] [facility] 09/24/2022 11:57:11 OPV 3 completed NEVA BUSTOS MD Attn: Accounting[address] [facility], [place], [place], [address] [place] [address], [place] [facility] 09/24/2022 11:57:11 DTP-Hib 4 completed NEVA BUSTOS MD Attn: Accounting[address] [facility], [place], [place], [address] [place] [address], [place] [facility] 09/24/2022 11:57:11 MMR 5 completed NEVA BUSTOS MD Attn: Accounting[address] [facility], [place], [address], [place] [facility] 09/24/2022 11:57:11 Hep B, adolescent or pediatric 3 completed NEVA BUSTOS MD Attn: Accounting[address] [facility], [place], [address], [place] [facility] 09/24/2022 11:57:11 Tdap 7 completed Not Available [facility] 09/16/2019 02:39:52 Tdap 2 completed ZOHAIB [place] [facility] 12/16/2021 12:13:57 Influenza, split virus, quadrivalent, preservative 6 completed Barbara Quinteros [place] [facility] 02/04/2021 10:14:46 Past Encounters Encounter ID Performer Location Encounter Start Date Encounter Closed Date Diagnosis/Indication Diagnosis SNOMED-CT Code Diagnosis ICD10 Code Diagnosis Note [id number] Leti Migel [facility] (MAJOR DONOR COORDINATOR) [address] [place] [address] 07/20/2014 14:07:04 07/20/2014 15:32:49 [id number] Leti Lainez Livingston [facility] (MAJOR DONOR COORDINATOR) [address] [place] [address] 08/10/2014 16:02:35 08/15/2014 17:42:50 [id number] Carrie Rossi HC (MAJOR DONOR COORDINATOR) [address] [place] [address] 08/29/2014 16:41:09 08/29/2014 17:18:50 [id number] Doreen Rossi (MAJOR DONOR COORDINATOR) [address] [place] [address] 09/07/2014 16:08:34 09/10/2014 11:56:32 [id number] Carrie Rossi (MAJOR DONOR COORDINATOR) [address] [place] [address] 09/14/2014 15:51:53 09/14/2014 16:35:22 [id number] Doreen Rossi (MAJOR DONOR COORDINATOR) [address] [place] [address] 12/16/2015 14:49:57 12/16/2015 15:58:51 Lymphadenopathy 04231184 R59.0 Single dilated lymph node likely due to skin lesion. Lesion without e/o infection. If node not decreased in next two weeks, RTO for possible Abx. [id number] Carrie Rossi (MAJOR DONOR COORDINATOR) [address] [place] [address] 06/11/2016 10:25:33 06/11/2016 14:14:35 Normal 49633745 Z34.81 Nutrition and hydration discussed. labs ordered. US ordered. PNVs. RTO 4 weeks. [id number] Carrie Rossi (MAJOR DONOR COORDINATOR) [address] [place] [address] 08/19/2016 16:23:09 09/07/2016 15:31:00 Routine care 470898965 Z34.82 [id number] Carrie Rossi HC (MAJOR DONOR COORDINATOR) [address] [place] [address] 08/25/2016 15:04:30 09/07/2016 15:45:09 Routine care 575060698 Z34.82 [id number] Carrie Soteloto HC (MAJOR DONOR COORDINATOR) [address] [place] [address] 09/22/2016 16:22:30 09/23/2016 12:53:16 Routine care 316952860 Z34.82 [id number] Carrie Soteloto HC (MAJOR DONOR COORDINATOR) [address] [place] [address] 10/06/2016 10:06:18 10/06/2016 14:06:00 Routine care 611279096 Z34.82 See ACOG form [id number] Carrie Rossi HC (MAJOR DONOR COORDINATOR) [address] [place] [address] 11/05/2016 11:13:14 11/09/2016 17:56:28 Normal [id number] Z34.83 See ACOG form D negative 400229821 Z 01.83 [id number] Carrie Soteloto HC (MAJOR DONOR COORDINATOR) [address] [place] [address] 11/30/2016 14:40:33 12/02/2016 09:55:02 Routine care 714659724 Z34.83 See ACOG form [id number] Carrie Olivahalto HC (MAJOR DONOR COORDINATOR) [address] [place] [address] 12/07/2016 16:29:26 12/09/2016 09:36:21 Routine care 408341817 Z34.83 See ACOG form [id number] Carrie Soteloto HC (MAJOR DONOR COORDINATOR) [address] [place] [address] 12/14/2016 16:31:51 12/16/2016 10:05:11 Routine care 306122587 Z34.83 See ACOG form [id number] Carrie Rossi (MAJOR DONOR COORDINATOR) [address] [place] [address] 12/21/2016 16:41:35 12/22/2016 10:06:05 Routine care 820460165 Z34.83 See ACOG form [id number] Carrie Rossi (MAJOR DONOR COORDINATOR) [address] [facility] [place] [address] 12/28/2016 16:41:50 12/29/2016 15:19:43 Routine care 085508536 Z34.83 See ACOG form [id number] Carrie Rossi (MAJOR DONOR COORDINATOR) [address] [facility] [place] [address] 01/04/2017 16:42:53 01/05/2017 11:51:31 Routine care 510643475 Z34.83 See ACOG form [id number] Carrie Rossi (MAJOR DONOR COORDINATOR) [address] [facility] [place] [address] 01/11/2017 17:29:06 01/13/2017 10:44:00 Routine care 090939316 Z34.83 See ACOG form [id number] Carrie Rossi (MAJOR DONOR COORDINATOR) [address] [facility] [place] [address] 01/23/2021 09:25:26 01/28/2021 06:27:49 Missed period 02521417 N92.5 UPT positive, dwp. Routine an tenatal care 476778583 Z34.81 See ACOG form [id number] Carrie Rossi (MAJOR DONOR COORDINATOR) [address] [facility] [place] [address] 02/04/2021 10:05:23 02/06/2021 10:38:34 Threatened miscarriage 45147197 O20.0 Pt .is still bleeding. ED records reviewed. US 02/02/21 showed 6 4/7 wk GS with no pole. Beta hCG = 8955 on 02/01/21 and 8188 on 02/02/21 indicating miscarriag e, dwp. However, difference may be within lab error. Repeat beta hCG quant ordered. If decreased, miscarriag e confirmed. If increased, will need further testing, dwp. Telephone visit tomorrow for results and POC. [id number] Carrie Cole [place] (MAJOR DONOR COORDINATOR) [address] [place] [address] 02/05/2021 08:00:15 02/06/2021 10:56:30 Incomplete miscarriage 514092445 O03.4 Beta hCG quant decreased from 8188 to 5381 confirming miscarriag e, dwp. Treatment options discussed. Pt. wants medication to help pass the tissue. Rx sent to pharmacy. Instructio ns discussed. Precaution s for fever, chills, lightheade dness, dizziness discussed. PT. knows to go to ED. RTO 02/20 for follow-up and repeat beta hCG quant. [id number] MD Marleen Shin [address] Christine [address] [place], [place] [address] [address] 08/07/2021 10:20:09 08/08/2021 06:12:54 Routine care 269637813 Z34.91 Depression screening 171 696377 Z13.31 [id number] MD Marleen Shin [address] [place] [address] Dr Christine [address] [place] [address] [address] 09/03/2021 10:30:18 09/07/2021 15:17:16 Routine care 916060664 Z34.91 [id number] MD Marleen Shin [address] [place] [address] Dr Christine [address] [place] [address] [address] 09/30/2021 10:42:27 10/01/2021 07:36:35 Routine care 130757944 Z34.91 RhD negative 446496964 Z 01.83 rhogam at 28 weeks Second tri mester 95417685 Z34.92 [id number] MD Marleen Shin [address] [place] [address] 10/29/2021 10:15:35 10/30/2021 06:56:59 Routine care 325706679 Z34.91 Abnormalit y of heart 516199637 O36.8999 RhD negative 867318344 Z 01.83 rhogam at 28 weeks [id number] MD Marleen Shin [address] [place] [address] 11/26/2021 09:53:18 11/27/2021 09:05:51 Routine care 379039538 Z34.91 RhD negative 893246446 Z 01.83 rhogam at 28 weeks, will RTC in 1 week for injection [id number] MD Marleen Shin [address] [place] [address] 12/10/2021 10:52:38 12/11/2021 06:02:41 RhD negative 637016406 Z01.83 rhogam at 28 weeks, will RTC in 1 week for injection [id number] MD Marleen Shin [address] [place] [address] 12/16/2021 10:15:22 12/16/2021 20:43:10 Routine care 338985804 Z34.91 RhD negative 297517119 Z 01.83 s/p rhogam at 28 weeks Glucose to lerance test outside reference range 856717526 R73.09 --Pt will RTC to complete 3hour GTT [id number] MD Marleen Shin [address] [place] [address] 01/06/2022 10:02:59 01/07/2022 05:59:19 Routine care 792544428 Z34.91 RhD negative 017326892 Z 01.83 s/p rhogam at 28 weeks Glucose to lerance test outside reference range 111334440 R73.09 -- 3hour GTT today [id number] MD Marleen Shin [address] [place] [address] 01/27/2022 10:11:59 01/28/2022 08:17:15 Routine care 431971437 Z34.91 RhD negative 527784443 Z 01.83 s/p rhogam at 28 weeks Abnormalit y of heart 080318975 O36.8999 -Karishma echo [id number] MD Marleen Shin [address] [place] [address] 02/04/2022 09:59:27 02/05/2022 08:44:30 Routine care 785874650 Z34.91 Hordeolum externum of upper eyelid of right eye 4285474251 57394 H00.011 RhD negative 117343309 Z 01.83 s/p rhogam at 28 weeks [id number] MD Marleen Shin 14 [address] [facility] [place] [address] 02/10/2022 09:43:30 02/11/2022 08:15:27 Routine care 426732236 Z34.91 RhD negative 185596551 Z 01.83 s/p rhogam at 28 weeks [id number] MD Marleen Shin 14 OB [address] [facility] [place] [address] 02/17/2022 09:05:15 02/19/2022 08:24:20 Routine care 400130977 Z34.91 RhD negative 133158674 Z 01.83 s/p rhogam at 28 weeks [id number] MD Marleen Shin 14 OB [address] [facility] [place] [address] 03/05/2022 12:18:53 03/06/2022 07:32:59 Essential hypertension 50883761 I10 [id number] Sunny Ritter MD Brick [address] [place] [address] [place] [address] 03/12/2022 11:32:28 03/13/2022 08:47:30 Essential hypertension 50913800 I10 [id number] Janie Holliday MA Marleen [address] [place] [address] [place] [address] 03/23/2022 10:54:21 03/24/2022 08:44:44 [id number] MD Marleen Shin [address] [place] [address] [place] [address] 06/17/2022 09:35:12 06/23/2022 16:57:05 care 227932975 Z39.2 Sterilizat ion requested 351934079 Z30.2 [id number] NEVA BUSTOS MD [facility] (MAJOR DONOR COORDINATOR) [address] [facility] [address] Christine [address] [facility] [place] [address] 09/24/2022 10:53:10 09/30/2022 15:10:52 Past history of gestational hypertension 823914371 Z87.59 - BP well controlled with nifedipine ER 90 mg daily- Will trial wean of nifedipine and monitor BP; patient to return to clinic in 4 weeks for repeat visit with BP check Adult [facility] th examination 136833876 Z00.00 - Reviewed risks for cardiovasc ular disease, infection, and cancer; ordered screening tests as appropriat e Anxiety disorder 0776736 06 F41.9 - Screen positive with LOC-7 score of 9, mild anxiety- Will start Lexapro 5 mg x7 days, then increase to 10 mg daily- Offered referral to therapist and recommende d CBT-i Implementation Advisor jyoti Nicotine d ependence with current use 270497874 F17.200 - Encouraged cessation for overall health, as well as reducing risk of cardiovasc ular disease and cancer- Recommende d use of Ste[employer] jyoti and referred to [employer] go[employer] as a resource- Will start nicotine replacemen t with patches [id number] MD Enid [facility] (MAJOR DONOR COORDINATOR) [address] [place] [address] 01/26/2023 11:01:27 01/27/2023 09:45:59 Essential hypertension 07800177 I10 - History of gestationa l HTN; on nifedipine ER 60 mg daily- 01/26/23: Normal BP off of medication . Will discontinu e nifedipine at this time. Return to clinic as needed. Persistent cough 6341064 02 R05.3 - DDx: post-viral cough vs secondary to post-nasal drip/aller gic rhinitis vs GERD- Recommende d daily intranasal corticoste roid use Health Concerns Section Related Observation LastModified by Organization Detai ls LastModified Time None Recorded Concern Status LastModified by Organization Details LastModified Time None Recorded Advance Directives Directive N: Payers Encounter Date Sequence Insurance Name Policy Number Policy Lang Covered Member ID Lang Member ID Guarantor Name 03/12/2022 1 [employer] [place] 2020 (MEDICAID REPLACEMENT - HMO) Magnolia Canas [id number] Magnolia Canas 03/23/2022 1 [employer] [place] REPLAC[place] - [place]MO) Magnolia Canas [id number] Magnolia Canas 06/17/2022 1 [employer] [place] - [place]MO) Magnolia Terryle [id number] Magnolia Terryle 09/24/2022 1 [employer] [place] - [place]MO) Magnolia Terryle [id number] Magnolia Terryle 01/26/2023 1 [employer] [place] - [place]MO) Magnolia Cansecokenneth [id number] Magnolia Cansecoradha Notes Date Note Type Note Provider Name and Address Organization Details Recorded Time 06/17/2022 text/html VisitReported bypatient.Onset/Jarett ing:date of delivery: (02/24/2022) Quality: Context:complicatio ns of : none; feeding choice: bottle; good support from partner/family Associated Symptoms:no abnormal bleeding; no pelvic pain; laceration well healed; no constipation; no fecal incontinence; no dysuria; no urinary incontinence; no fever; no mastitis Sunny Ritter MD Attn: [address] [place], [address], [place] [facility] 06/17/2022 15:09:33 09/24/2022 text/html Annual wellness- PCP: None -- establishing care Concerns today- Wanting to know if she needs to continue her nifedipine for BP- Delivered 02/24/2022- BP still elevated at nurse visit on 03/05, so was continued on nifedipine- Wanted salpingectomy as of visit with Dr. Ritter on 06/17/22; scheduled for November 2022 Cardiovascular risk- HTN: History of gestational hypertension. BP wnl today.- DM2: FHx in maternal grandfather.- HLD: No known FHx.- Personal history of KS, CVA? No- Family history of KS, CVA? FHx in mother at age 37. Infection risk- Prior testing for HIV? Yes - neg in 2021- Prior testing for HepC? None on file- History of STIs? No- Currently having unprotected sex? Yes - with same partner Plans for - Partner with vasectomy- Salpingectomy scheduled for November 2022 Cancer screenings- Breast cancer: No known FHx. No breast changes.- Cervical cancer: Last screening 07/2021 -- NILM- Colon cancer: FHx in paternal grandfather.- Lung cancer: FHx in paternal grandfather. Current smoker -- 0.5 ppd x 16 years. NEVA BUSTOS MD Attn: [address] [place], [address], [facility] 09/24/2022 11:57:49 01/26/2023 text/html HTN- Has been on nifedipine 60 mg daily but out of medicines for past 2 days- No chest pain, shortness of breath, vision changes, leg swelling- Had headache yesterday that responded to Tylenol; checked BP, which was in the 130s/80s Persistent cough- Got sick about 1.5 months ago and still has cough- Cough is worse in the morning; produces sputum- Gets tickle in back of throat NEVA BUSTOS MD Attn: Accounting[address] [place], [address], [facility] 01/26/2023 11:47:45 OBGyn Episode Ob Episode Information Episode Created Date Number of Fetuses Patient Bloodtype Patient rh Status Prepregnancy Weight lbs Domestic Partner Domestic Partner Phone Father Name Vp Ad Products And Planning Status 01/24/20 21 1 A Negative Prasad Bacon CLOSED Fetus Data First Name Last Name Admitted to NICU Weight (g) Sex Living Outcome Pediatric Complications Fetus ID Race Codes Race Delivery Type [id number] Problems Problem Notes CF negative last Problem Name Start Date End Date Resolution Snomed Code Not e RhD negative [id number] Rhogam @ 28 wks Obesity 157667142 Weight gai n 11-20 lbs disc. Smoker 76827164 Grand multipara [id number] Sterilization requested 01/23/2021 [id number] Chacorta Calculation Initial Chacorta Date Initial Exam Date Initial Exam Provider Initial Ultrasound Date Last Menstrual Period Date Ultra Sound Weeks Gestation 09/06/2021 01/23/2021 [email or web address] 11/30/2020 0 Eighteen To Twenty Week Chacorta Update Ultra Sound Date Fundal Height At Umbil Quickening Date Ultra Sound Latest Weeks Gestation Final Chacorta Confirmed By Final Chacorta Confirmed Date Final Chacorta Date Ultra Sound Latest Days Gestation 0 01/08/20 22 0 Pre-carlos manuel Flowsheet Flowsheet Date 01/23/2021 Cortez Score Blood Edema Fundus Height Fundus Units Glucose Ketones Leukocytes Nitrite Labor Signs Protein Cervic Dilation Cervic Effacement Cervic Station none neg Type Weight in lbs Pre/Post Dialysis Refused Weight 216.99925161216 BP Diastolic BP Location Tested BP Systolic BP Type 80 106 sitting Fetus Heart Rate Present Fetus Movement Comments folder given. Pren atal labs ordered. Pt. had US at [facility] and has another appt. on 01/30/21. She is taking PNVs. Rx sent to be on hold. Obesity discussed. Target weight gain discussed. RTO 4 weeks for NOB visit. Flowsheet Date 02/04/2021 Cortez Score Blood Edema Fundus Height Fundus Units Glucose Ketones Leukocytes Nitrite Labor Signs Protein Cervic Dilation Cervic Effacement Cervic Station Type Weight in lbs Pre/Post Dialysis Refused With clothes 214.052980166155 BP Diastolic BP Location Tested BP Systolic BP Type 80 110 sitting Fetus Heart Rate Present Fetus Movement Comments Pt .went to ED 02/01/21 and 02/02/21 with bleeding. US showed GS 6 4/7 wks with no pole. beta hCG quant decreased from 8955 to 8188 in 24 hours. Likely miscarriage dwp. Repeat beta hCG quant. ordered to confirm. Telephone visit tomorrow for results and POC. Flowsheet Date 02/05/2021 Cortez Score Blood Edema Fundus Height Fundus Units Glucose Ketones Leukocytes Nitrite Labor Signs Protein Cervic Dilation Cervic Effacement Cervic Station Type Weight in lbs Pre/Post Dialysis Refused BP Diastolic BP Location Tested BP Systolic BP Type Fetus Heart Rate Present Fetus Movement Comments beta hCG quant decreased to 5381 confirming miscarriage. Menstrual History Last Menstrual Date Menses Monthly On Bcp Conception Prior Menses Frequency Hcg Plus Date Menarche Onset Age 0411/30/2020 true 5 1 13 Genetic Screening And Infection History Question Response Note Patient's Age Will Be 35 Years Or Older At Estim ated Date of Delivery false Thalassemia (Belarusian, Wolof, Mediterranean, Or Background): MCV < 80 false Neural Tube Defect (Meningomyelocele, Spina Bifi da, Or Anencephaly) false Congenital Heart Defect false Down Syndrome false Michael-Sachs (eg, Anglican, Cajun, Trinidadian-Deaver) f alse Selina Disease false Sickle Cell Disease Or Trait () false Hemophilia Or Other Blood Disorders false Muscular Dystrophy false Cystic Fibrosis false [place]'s Chorea false Mental Retardation/Autism false Other Inherited Genetic Or Chromosomal Disorder false Maternal Metabolic Disorder (eg, Type 1 Diabetes , PKU) false Patient Or Baby's Father Had A Child With Defects Not Listed Above false Recurrent Loss, Or A Stillbirth false Medications (including Suppl ements, Vitamins, Herbs, OTC Drugs), Illicit/Recreational Drugs, Alcohol true Any Other Genetic History false Live With Someone With TB Or Exposed To TB false Patient Or Partner Has History Of Genital Herpes false Rash Or Viral Illness Since Last Menstrual Perio d false History Of STD, Gonorrhea, Chlamydia, HPV, Syphi lis false Other Infection History false History of HIV false History of Hepatitis true Prior GBS-infected child false Delivery Information Delivery Date Delivery Type Labor Anesthesia Weeks Gestation Incision Type Labor Labor Length Hrs Delivered By Post Complications Tubal Sterilization Discharge Date Comments Discharge Information Feeding Method Contraceptive Method Maternal HG B and HCT Levels Ob Episode Information Episode Created Date Number of Fetuses Patient Bloodtype Patient rh Status Prepregnancy Weight lbs Domestic Partner Domestic Partner Phone Father Name Vp Ad Products And Planning Status 07/14/20 21 1 A Negative CLOSED Fetus Data First Name Last Name Admitted to NICU Weight (g) Sex Living Outcome Pediatric Complications Fetus ID Race Codes Race Delivery Type Janet Delaney ds false 2596.26 [id number] F Full Term [id number] White Vaginal Problems Problem Notes breast feeding epidural yes boy cir yesVaricella non-immune Problem Name Start Date End Date Resolution Snomed Code Not e RhD negative [id number] s/p rho elton at 28 weeks Abnormality of heart 10/29/2021 [id number] Normal ec ho Chacorta Calculation Initial Chacorta Date Initial Exam Date Initial Exam Provider Initial Ultrasound Date Last Menstrual Period Date Ultra Sound Weeks Gestation 02/27/2022 [facility]09[facility] 05/23/2021 15 Eighteen To Twenty Week Chacorta Update Ultra Sound Date Fundal Height At Umbil Quickening Date Ultra Sound Latest Weeks Gestation Final Chacorta Confirmed By Final Chacorta Confirmed Date Final Chacorta Date Ultra Sound [facility]est Days [facility]11/2021 02/28/20 22 0 Pre- Flowsheet Flowsheet Date 08/07/2021 Cortez Score Blood Edema Fundus Height Fundus Units Glucose Ketones Leukocytes Nitrite Labor Signs Protein Cervic Dilation Cervic Effacement Cervic Station neg none none negative none neg 0cm Type Weight in lbs Pre/Post Dialysis Refused With clothes 227.737351466081 BP Diastolic BP Location Tested BP Systolic BP Type 72 116 sitting Fetus Heart Rate Present Fetus Movement Comments Patient presents for initial visit. CBE and pap smear performed. Nutritional counseling performed. Will obtain labs and schedule dating sonogram. RTC in 4 weeks for routine care. Flowsheet Date 09/03/2021 Cortez Score Blood Edema Fundus Height Fundus Units Glucose Ketones Leukocytes Nitrite Labor Signs Protein Cervic Dilation Cervic Effacement Cervic Station neg none none negative none neg Type Weight in lbs Pre/Post Dialysis Refused With clothes 227.811201233710 BP Diastolic BP Location Tested BP Systolic BP Type 78 102 sitting Fetus Heart Rate Present A 140's Present Fetus Movement A Yes Comments Patient denies any complaint s. Dating sonogram scheduled for 09/09/21. RTC in 4 weeks for routine care. Flowsheet Date 09/30/2021 Cortez Score Blood Edema Fundus Height Fundus Units Glucose Ketones Leukocytes Nitrite Labor Signs Protein Cervic Dilation Cervic Effacement Cervic Station neg none none trace none neg Type Weight in lbs Pre/Post Dialysis Refused With clothes 229.286457254242 BP Diastolic BP Location Tested BP Systolic BP Type 68 108 sitting Fetus Heart Rate Present A 140's Present Fetus Movement A Yes Comments Patient denies any complaint s. Will schedule anatomy sonogram and obtain quad screen today. RTC in 4 weeks. Flowsheet Date 10/29/2021 Cortez Score Blood Edema Fundus Height Fundus Units Glucose Ketones Leukocytes Nitrite Labor Signs Protein Cervic Dilation Cervic Effacement Cervic Station neg none none negative none neg Type Weight in lbs Pre/Post Dialysis Refused With clothes 229.973199430391 BP Diastolic BP Location Tested BP Systolic BP Type 80 116 sitting Fetus Heart Rate Present A 140's Present Fetus Movement A Yes Comments Discussed anatomy ultrasound which showed possible heart septal defects. Plan to send to [facility] for follow up imaging and consultation. labor precautions given. RTC in 4 weeks. Flowsheet Date 11/26/2021 Cortez Score Blood Edema Fundus Height Fundus Units Glucose Ketones Leukocytes Nitrite Labor Signs Protein Cervic Dilation Cervic Effacement Cervic Station neg none 28 cm none negative none neg Type Weight in lbs Pre/Post Dialysis Refused With clothes 233.410320605925 BP Diastolic BP Location Tested BP Systolic BP Type 88 138 sitting Fetus Heart Rate Present A 150's Present Fetus Movement A Yes Comments Patient admits to FM, denies VB, LOF and CTXs. DMS and CBC today. Will RTC in 1 week for rhogam. labor precautions given. RTC in 3 weeks for routine care. Flowsheet Date 12/10/2021 Cortez Score Blood Edema Fundus Height Fundus Units Glucose Ketones Leukocytes Nitrite Labor Signs Protein Cervic Dilation Cervic Effacement Cervic Station Type Weight in lbs Pre/Post Dialysis Refused BP Diastolic BP Location Tested BP Systolic BP Type Fetus Heart Rate Present Fetus Movement Comments Flowsheet Date 12/16/2021 Cortez Score Blood Edema Fundus Height Fundus Units Glucose Ketones Leukocytes Nitrite Labor Signs Protein Cervic Dilation Cervic Effacement Cervic Station neg none 31 cm none negative none neg Type Weight in lbs Pre/Post Dialysis Refused With clothes 235.616842972160 BP Diastolic BP Location Tested BP Systolic BP Type 80 124 sitting Fetus Heart Rate Present A 140's Present Fetus Movement A Yes Comments Patient denies any complaint s. She admits to FM, denies VB, LOF and CTXs. Failed DMS, will RTC to complete 3 hour GTT. Tdap vaccine today. labor precautions given. RTC in 3 weeks. Flowsheet Date 01/06/2022 Cortez Score Blood Edema Fundus Height Fundus Units Glucose Ketones Leukocytes Nitrite Labor Signs Protein Cervic Dilation Cervic Effacement Cervic Station neg none 34 cm none negative none neg Type Weight in lbs Pre/Post Dialysis Refused Weight 236.859966143484 BP Diastolic BP Location Tested BP Systolic BP Type 80 134 sitting Fetus Heart Rate Present A 140's Present Fetus Movement A Yes Comments Patient denies any complaint s. She admits to FM, denies VB, LOF and CTXs. Will complete 3hour GTT today. labor precautions given. RTC in 2 weeks. Flowsheet Date 01/27/2022 Cortez Score Blood Edema Fundus Height Fundus Units Glucose Ketones Leukocytes Nitrite Labor Signs Protein Cervic Dilation Cervic Effacement Cervic Station neg none 35 cm none negative [place] 1+ Type Weight in lbs Pre/Post Dialysis Refused With clothes 241.29586441917 BP Diastolic BP Location Tested BP Systolic BP Type 76 128 sitting Fetus Heart Rate Present A 150's Present Fetus Movement A Yes Comments Patient admits to good movement and bryson billingsley contractions. She denies VB and LOF. labor precautions given. RTC in 1 week. Flowsheet Date 02/04/2022 Cortez Score Blood Edema Fundus Height Fundus Units Glucose Ketones Leukocytes Nitrite Labor Signs Protein Cervic Dilation Cervic Effacement Cervic Station neg none 37 cm none negative none neg Type Weight in lbs Pre/Post Dialysis Refused With clothes 243.926637895441 BP Diastolic BP Location Tested BP Systolic BP Type 86 126 sitting Fetus Heart Rate Present A 130's Present Fetus Movement A Yes Comments Patient admits to a stye on her upper ight eye lid, will send in an ointment for treatment. She denies any other complaints. GBS and STD testing today. labor precautions given. RTC in 1 week. Flowsheet Date 02/10/2022 Cortez Score Blood Edema Fundus Height Fundus Units Glucose Ketones Leukocytes Nitrite Labor Signs Protein Cervic Dilation Cervic Effacement Cervic Station neg none 38 cm none negative none 1+ 1cm 40% - 3 Type Weight in lbs Pre/Post Dialysis Refused With clothes 241.923416906268 BP Diastolic BP Location Tested BP Systolic BP Type 90 128 sitting 88 122 sitting Fetus Heart Rate Present A 130's Present Fetus Movement A Yes Comments Patient denies any complaint s, She admits to FM, denies VB, LOF, CTXs, headaches, visual changes and RUQ pain. Pt desires elective IOL at term. Will be scheduled for 02/25/22 at 0600. Labor precautions given. RTC in 1 week. Flowsheet Date 02/17/2022 Cortez Score Blood Edema Fundus Height Fundus Units Glucose Ketones Leukocytes Nitrite Labor Signs Protein Cervic Dilation Cervic Effacement Cervic Station neg none 37 cm none negative none neg Type Weight in lbs Pre/Post Dialysis Refused With clothes 249.102714321325 BP Diastolic BP Location Tested BP Systolic BP Type 82 134 sitting Fetus Heart Rate Present A 140's Present Fetus Movement A Yes Comments Patient denies any complaint s. She admits to FM, denies VB, LOF and CTXs. Labor precautions given. RTC in 1 week. Flowsheet Date 03/05/2022 Cortez Score Blood Edema Fundus Height Fundus Units Glucose Ketones Leukocytes Nitrite Labor Signs Protein Cervic Dilation Cervic Effacement Cervic Station Type Weight in lbs Pre/Post Dialysis Refused BP Diastolic BP Location Tested BP Systolic BP Type 88 142 sitting Fetus Heart Rate Present Fetus Movement Comments Flowsheet Date 03/12/2022 Cortez Score Blood Edema Fundus Height Fundus Units Glucose Ketones Leukocytes Nitrite Labor Signs Protein Cervic Dilation Cervic Effacement Cervic Station Type Weight in lbs Pre/Post Dialysis Refused BP Diastolic BP Location Tested BP Systolic BP Type 90 158 sitting Fetus Heart Rate Present Fetus Movement Comments Flowsheet Date 03/23/2022 Cortez Score Blood Edema Fundus Height Fundus Units Glucose Ketones Leukocytes Nitrite Labor Signs Protein Cervic Dilation Cervic Effacement Cervic Station Type Weight in lbs Pre/Post Dialysis Refused BP Diastolic BP Location Tested BP Systolic BP Type 86 118 sitting Fetus Heart Rate Present Fetus Movement Comments Menstrual History Last Menstrual Date Menses Monthly On Bcp Conception Prior Menses Frequency Hcg Plus Date Menarche Onset Age 0905/23/2021 true false 28 12 Genetic Screening And Infection History Question Response Note Patient's Age Will Be 35 Yea rs Or Older At Estimated Date of Delivery false Thalassemia (Belarusian, Wolof, Mediterranean, Or Background): MCV < 80 false Neural Tube Defect (Meningom yelocele, Spina Bifida, Or Anencephaly) false Congenital Heart Defect false Down Syndrome false Michael-Sachs (eg, Anglican, Cajun, Trinidadian-Deaver) f alse Selina Disease false Sickle Cell Disease Or Trait () false Hemophilia Or Other Blood Disorders false Muscular Dystrophy false Cystic Fibrosis false Idania's Chorea false Mental Retardation/Autism false If Yes, Was Person Tested For Fragile X? false Other Inherited Genetic Or Chromosomal Disorder false Maternal Metabolic Disorder (eg, Type 1 Diabetes , PKU) false Patient Or Baby's Father Had A Child With Defects Not Listed Above false Recurrent Loss, Or A Stillbirth false 02/17 miscarriage Medications (including Suppl ements, Vitamins, Herbs, OTC Drugs), Illicit/Recreational Drugs, Alcohol true v it If Yes, Agent(s) And Strength/Dosage false Any Other Genetic History false Live With Someone With TB Or Exposed To TB false Patient Or Partner Has History Of Genital Herpes false Rash Or Viral Illness Since Last Menstrual Perio d false History Of STD, Gonorrhea, Chlamydia, HPV, Syphi lis false Other Infection History false History of HIV false History of Hepatitis false Prior GBS-infected child false Delivery Information Delivery Date Delivery Type Labor Anesthesia Weeks Gestation Incision Type Labor Labor Length Hrs Delivered By Post Complications Tubal Sterilization Discharge Date Comments 2 Sponta neous None 39.4 Lawrence Matson MD None 02/25/2022 Discharge Information Feeding Method Contraceptive Method Maternal HG B and HCT Levels Breast 10.11/26 Ob Episode Information Episode Created Date Number of Fetuses Patient Bloodtype Patient rh Status Prepregnancy Weight lbs Domestic Partner Domestic Partner Phone Father Name Vp Ad Products And Planning Status 01/24/20 21 1 CLOSED Fetus Data First Name Last Name Admitted to NICU Weight (g) Sex Living Outcome Pediatric Complications Fetus ID Race Codes Race Delivery Type , Induced [id number] Chacorta Calculation Initial Chacorta Date Initial Exam Date Initial Exam Provider Initial Ultrasound Date Last Menstrual Period Date Ultra Sound Weeks Gestation 0 Eighteen To Twenty Week Chacorta Update Ultra Sound Date Fundal Height At Umbil Quickening Date Ultra Sound Latest Weeks Gestation Final Chacorta Confirmed By Final Chacorta Confirmed Date Final Chacorta Date Ultra Sound Latest Days Gestation 0 0 Menstrual History Last Menstrual Date Menses Monthly On Bcp Conception Prior Menses Frequency Hcg Plus Date Menarche Onset Age Delivery Information Delivery Date Delivery Type Labor Anesthesia Weeks Gestation Incision Type Labor Labor Length Hrs Delivered By Post Complications Tubal Sterilization Discharge Date Comments 5 Discharge Information Feeding Method Contraceptive Method Maternal HG B and HCT Levels Ob Episode Information Episode Created Date Number of Fetuses Patient Bloodtype Patient rh Status Prepregnancy Weight lbs Domestic Partner Domestic Partner Phone Father Name Vp Ad Products And Planning Status 08/07/20 21 1 CLOSED Fetus Data First Name Last Name Admitted to NICU Weight (g) Sex Living Outcome Pediatric Complications Fetus ID Race Codes Race Delivery Type , Spontane ous [id number] Chacorta Calculation Initial Chacorta Date Initial Exam Date Initial Exam Provider Initial Ultrasound Date Last Menstrual Period Date Ultra Sound Weeks Gestation 0 Eighteen To Twenty Week Chacorta Update Ultra Sound Date Fundal Height At Umbil Quickening Date Ultra Sound Latest Weeks Gestation Final Chacorta Confirmed By Final Chacorta Confirmed Date Final Chacorta Date Ultra Sound Latest Days Gestation 0 0 Menstrual History Last Menstrual Date Menses Monthly On Bcp Conception Prior Menses Frequency Hcg Plus Date Menarche Onset Age Delivery Information Delivery Date Delivery Type Labor Anesthesia Weeks Gestation Incision Type Labor Labor Length Hrs Delivered By Post Complications Tubal Sterilization Discharge Date Comments 1 Discharge Information Feeding Method Contraceptive Method Maternal HG B and HCT Levels Ob Episode Information Episode Created Date Number of Fetuses Patient Bloodtype Patient rh Status Prepregnancy Weight lbs Domestic Partner Domestic Partner Phone Father Name Vp Ad Products And Planning Status 06/11/20 16 1 A Negative Satya Ray Dr Leos CLOSED Fetus Data First Name Last Name Admitted to NICU Weight (g) Sex Living Outcome Pediatric Complications Fetus ID Race Codes Race Delivery Type Kat Hobson false 3685.43 5 M true Full Term [id number] White Vaginal Chacorta Calculation Initial Chacorta Date Initial Exam Date Initial Exam Provider Initial Ultrasound Date Last Menstrual Period Date Ultra Sound Weeks Gestation 01/04/2017 06/11/2016 [email or web address] 06/24/2016 03/30/2016 11 Eighteen To Twenty Week Chacorta Update Ultra Sound Date Fundal Height At Umbil Quickening Date Ultra Sound Latest Weeks Gestation Final Chacorta Confirmed By Final Chacorta Confirmed Date Final Chacorta Date Ultra Sound Latest Days Gestation 09/22/19 17 24 [email or web address] 06/29/2016 01/05/20 17 4 Pre- Flowsheet Flowsheet Date 06/11/2016 Cortez Score Blood Edema Fundus Height Fundus Units Glucose Ketones Leukocytes Nitrite Labor Signs Protein Cervic Dilation Cervic Effacement Cervic Station Type Weight in lbs Pre/Post Dialysis Refused 237.203146711749 BP Diastolic BP Location Tested BP Systolic BP Type 84 118 sitting Fetus Heart Rate Present Fetus Movement Comments Flowsheet Date 08/19/2016 Cortez Score Blood Edema Fundus Height Fundus Units Glucose Ketones Leukocytes Nitrite Labor Signs Protein Cervic Dilation Cervic Effacement Cervic Station none 1+ Type Weight in lbs Pre/Post Dialysis Refused 233.389401619047 BP Diastolic BP Location Tested BP Systolic BP Type 68 118 sitting Fetus Heart Rate Present A 140 Present Fetus Movement Comments labs reviewed. Rh n egative discussed. Quad screen discussed, ordered. Anatomy US ordered. RTO one week. Flowsheet Date 08/25/2016 Cortez Score Blood Edema Fundus Height Fundus Units Glucose Ketones Leukocytes Nitrite Labor Signs Protein Cervic Dilation Cervic Effacement Cervic Station Type Weight in lbs Pre/Post Dialysis Refused 234.194653332075 BP Diastolic BP Location Tested BP Systolic BP Type 64 110 sitting Fetus Heart Rate Present Fetus Movement Comments Quad screen negative, dwp. P t. has not had Anatomy US done. Encouraged to have it done. PE, pap, GC/chlam cx done today. RTO PRN + 4 weeks. Flowsheet Date 09/22/2016 Cortez Score Blood Edema Fundus Height Fundus Units Glucose Ketones Leukocytes Nitrite Labor Signs Protein Cervic Dilation Cervic Effacement Cervic Station none trace Type Weight in lbs Pre/Post Dialysis Refused 232.788057185453 BP Diastolic BP Location Tested BP Systolic BP Type 74 120 sitting Fetus Heart Rate Present A 145 Present Fetus Movement A Yes Comments PT labor prec disc. Pt. had anatomy US done this AM. Pap, GC/Chlam cx all normal, dwp. RTO 2 weeks for third trimester labs. Flowsheet Date 10/06/2016 Cortez Score Blood Edema Fundus Height Fundus Units Glucose Ketones Leukocytes Nitrite Labor Signs Protein Cervic Dilation Cervic Effacement Cervic Station none 1+ Type Weight in lbs Pre/Post Dialysis Refused 231.206611492910 BP Diastolic BP Location Tested BP Systolic BP Type 68 110 sitting Fetus Heart Rate Present A 150 Present Fetus Movement A Yes Comments Anatomy US wnl, dwp. Third t rimester labs today. TdaP discussed, given. Pt. received the Flu shot at [facility] in May when she was there with her son. PT labor prec. discussed. RTO 2 weeks. Flowsheet Date 11/05/2016 Cortez Score Blood Edema Fundus Height Fundus Units Glucose Ketones Leukocytes Nitrite Labor Signs Protein Cervic Dilation Cervic Effacement Cervic Station 32 cm none trace Type Weight in lbs Pre/Post Dialysis Refused 237.404737905995 BP Diastolic BP Location Tested BP Systolic BP Type 62 124 sitting Fetus Heart Rate Present A 160 Present Fetus Movement A Yes Comments Non-compliance discussed. Th ird trimester labs wnl, dwp. Rhogam discussed, given. PT labor prec/kick ocunts discussed. RTO 2 weeks. Flowsheet Date 11/30/2016 Cortez Score Blood Edema Fundus Height Fundus Units Glucose Ketones Leukocytes Nitrite Labor Signs Protein Cervic Dilation Cervic Effacement Cervic Station 35 cm none trace Type Weight in lbs Pre/Post Dialysis Refused 238.32058890110 BP Diastolic BP Location Tested BP Systolic BP Type 82 120 sitting Fetus Heart Rate Present A 160 Present Fetus Movement A Yes Comments Non-compliance discussed aga in. Labor prec/kick counts discussed. RTO 1 week. GBS next visit. Flowsheet Date 12/07/2016 Cortez Score Blood Edema Fundus Height Fundus Units Glucose Ketones Leukocytes Nitrite Labor Signs Protein Cervic Dilation Cervic Effacement Cervic Station 36 cm none trace 1cm -4 Type Weight in lbs Pre/Post Dialysis Refused 238.037010045047 BP Diastolic BP Location Tested BP Systolic BP Type 68 134 sitting Fetus Heart Rate Present A 160 Present Fetus Movement A Yes Comments GBS done today. Labor prec/k ick counts discussed. Hydration discussed. No laying on her back, no getting up quickly also discussed. Flowsheet Date 12/14/2016 Cortez Score Blood Edema Fundus Height Fundus Units Glucose Ketones Leukocytes Nitrite Labor Signs Protein Cervic Dilation Cervic Effacement Cervic Station 37 cm 1cm Type Weight in lbs Pre/Post Dialysis Refused 237.244635912997 BP Diastolic BP Location Tested BP Systolic BP Type 88 134 sitting Fetus Heart Rate Present A 150 Present Fetus Movement A Yes Comments GBS neg, dwp. Labor prec/kic k counts discussed. RTO one week Flowsheet Date 12/21/2016 Cortez Score Blood Edema Fundus Height Fundus Units Glucose Ketones Leukocytes Nitrite Labor Signs Protein Cervic Dilation Cervic Effacement Cervic Station 1cm -4 Type Weight in lbs Pre/Post Dialysis Refused 236.509476502959 BP Diastolic BP Location Tested BP Systolic BP Type 70 126 sitting Fetus Heart Rate Present A 135 Present Fetus Movement A Yes Comments Labor prec/kick counts discu ssed. RTO one week. Flowsheet Date 12/28/2016 Cortez Score Blood Edema Fundus Height Fundus Units Glucose Ketones Leukocytes Nitrite Labor Signs Protein Cervic Dilation Cervic Effacement Cervic Station 39 cm none neg 1cm -3 Type Weight in lbs Pre/Post Dialysis Refused 237.245678425582 BP Diastolic BP Location Tested BP Systolic BP Type 80 130 sitting Fetus Heart Rate Present A 140 Present Fetus Movement A Yes Comments Labor prec/kick counts discu ssed. RTO one week. Flowsheet Date 01/04/2017 Cortez Score Blood Edema Fundus Height Fundus Units Glucose Ketones Leukocytes Nitrite Labor Signs Protein Cervic Dilation Cervic Effacement Cervic Station 40 cm 3cm 50% -3 Type Weight in lbs Pre/Post Dialysis Refused 243.472403691776 BP Diastolic BP Location Tested BP Systolic BP Type 72 122 sitting Fetus Heart Rate Present A 150 Present Fetus Movement A Yes Comments Labor prec/kick counts discu ssed. RTO one week. Flowsheet Date 01/11/2017 Cortez Score Blood Edema Fundus Height Fundus Units Glucose Ketones Leukocytes Nitrite Labor Signs Protein Cervic Dilation Cervic Effacement Cervic Station none neg 3cm 50% -2 Type Weight in lbs Pre/Post Dialysis Refused [id number] BP Diastolic BP Location Tested BP Systolic BP Type 92 136 sitting Fetus Heart Rate Present A 135 Present Fetus Movement A Yes Comments Labor prec/kick counts discu ssed. IOL 01/13/17, pit. Menstrual History Last Menstrual Date Menses Monthly On Bcp Conception Prior Menses Frequency Hcg Plus Date Menarche Onset Age 0803/30/2016 true false 5 6 13 Genetic Screening And Infection History Question Response Note Patient's Age Will Be 35 Years Or Older At Estim ated Date of Delivery false Thalassemia (Belarusian, Wolof, Mediterranean, Or Background): MCV < 80 false Neural Tube Defect (Meningomyelocele, Spina Bifi da, Or Anencephaly) false Congenital Heart Defect false Down Syndrome false Michael-Sachs (eg, Anglican, Cajun, Trinidadian-Deaver) f alse Selina Disease false Sickle Cell Disease Or Trait () false Hemophilia Or Other Blood Disorders false Muscular Dystrophy false Cystic Fibrosis false [place]'s Chorea false Mental Retardation/Autism false If Yes, Was Person Tested For Fragile X? false Other Inherited Genetic Or Chromosomal Disorder false Maternal Metabolic Disorder (eg, Type 1 Diabetes , PKU) false Patient Or Baby's Father Had A Child With Defects Not Listed Above false Recurrent Loss, Or A Stillbirth false Medications (including Suppl ements, Vitamins, Herbs, OTC Drugs), Illicit/Recreational Drugs, Alcohol false If Yes, Agent(s) And Strength/Dosage false Any Other Genetic History false Live With Someone With TB Or Exposed To TB false Patient Or Partner Has History Of Genital Herpes false Rash Or Viral Illness Since Last Menstrual Perio d false History Of STD, Gonorrhea, Chlamydia, HPV, Syphi lis false Other Infection History false Delivery Information Delivery Date Delivery Type Labor Anesthesia Weeks Gestation Incision Type Labor Labor Length Hrs Delivered By Post Complications Tubal Sterilization Discharge Date Comments 7 Induce d [facility].2 Dr. Carrie Cole Pt never returned for Post appts Discharge Information Feeding Method Contraceptive Method Maternal HG B and HCT Levels Bottle Ob Episode Information Episode Created Date Number of Fetuses Patient Bloodtype Patient rh Status Prepregnancy Weight lbs Domestic Partner Domestic Partner Phone Father Name Vp Ad Products And Planning Status 08/19/20 16 1 CLOSED Fetus Data First Name Last Name Admitted to NICU Weight (g) Sex Living Outcome Pediatric Complications Fetus ID Race Codes Race Delivery Type M [id number] Chacorta Calculation Initial Chacorta Date Initial Exam Date Initial Exam Provider Initial Ultrasound Date Last Menstrual Period Date Ultra Sound Weeks Gestation 0 Eighteen To Twenty Week Chacorta Update Ultra Sound Date Fundal Height At Umbil Quickening Date Ultra Sound Latest Weeks Gestation Final Chacorta Confirmed By Final Chacorta Confirmed Date Final Chacorta Date Ultra Sound Latest Days Gestation 0 0 Menstrual History Last Menstrual Date Menses Monthly On Bcp Conception Prior Menses Frequency Hcg Plus Date Menarche Onset Age Delivery Information Delivery Date Delivery Type Labor Anesthesia Weeks Gestation Incision Type Labor Labor Length Hrs Delivered By Post Complications Tubal Sterilization Discharge Date Comments 5 Discharge Information Feeding Method Contraceptive Method Maternal HG B and HCT Levels Ob Episode Information Episode Created Date Number of Fetuses Patient Bloodtype Patient rh Status Prepregnancy Weight lbs Domestic Partner Domestic Partner Phone Father Name Vp Ad Products And Planning Status 08/19/20 16 1 CLOSED Fetus Data First Name Last Name Admitted to NICU Weight (g) Sex Living Outcome Pediatric Complications Fetus ID Race Codes Race Delivery Type M [id number] Chacorta Calculation Initial Chacorta Date Initial Exam Date Initial Exam Provider Initial Ultrasound Date Last Menstrual Period Date Ultra Sound Weeks Gestation 0 Eighteen To Twenty Week Chacorta Update Ultra Sound Date Fundal Height At Umbil Quickening Date Ultra Sound Latest Weeks Gestation Final Chacorta Confirmed By Final Chacorta Confirmed Date Final Chacorta Date Ultra Sound Latest Days Gestation 0 0 Menstrual History Last Menstrual Date Menses Monthly On Bcp Conception Prior Menses Frequency Hcg Plus Date Menarche Onset Age Delivery Information Delivery Date Delivery Type Labor Anesthesia Weeks Gestation Incision Type Labor Labor Length Hrs Delivered By Post Complications Tubal Sterilization Discharge Date Comments 0 Discharge Information Feeding Method Contraceptive Method Maternal HG B and HCT Levels Ob Episode Information Episode Created Date Number of Fetuses Patient Bloodtype Patient rh Status Prepregnancy Weight lbs Domestic Partner Domestic Partner Phone Father Name Vp Ad Products And Planning Status 08/19/20 16 1 CLOSED Fetus Data First Name Last Name Admitted to NICU Weight (g) Sex Living Outcome Pediatric Complications Fetus ID Race Codes Race Delivery Type F [id number] Chacorta Calculation Initial Chacorta Date Initial Exam Date Initial Exam Provider Initial Ultrasound Date Last Menstrual Period Date Ultra Sound Weeks Gestation 0 Eighteen To Twenty Week Chacorta Update Ultra Sound Date Fundal Height At Umbil Quickening Date Ultra Sound Latest Weeks Gestation Final Chacorta Confirmed By Final Chacorta Confirmed Date Final Chacorta Date Ultra Sound Latest Days Gestation 0 0 Menstrual History Last Menstrual Date Menses Monthly On Bcp Conception Prior Menses Frequency Hcg Plus Date Menarche Onset Age Delivery Information Delivery Date Delivery Type Labor Anesthesia Weeks Gestation Incision Type Labor Labor Length Hrs Delivered By Post Complications Tubal Sterilization Discharge Date Comments 2 Discharge Information Feeding Method Contraceptive Method Maternal HG B and HCT Levels
--- OUTSIDE RECORDS SUMMARY | 2024-12-09 16:53 | XMS_ITS | Clinical Summary ---
Author Organization [facility] Address [address] [place] [address] Care Team Providers Care Bumboater Name Role Phone No, Physician Primary Care Provider [phone] Sunny Ritter MD Unavailable Allergies No known [...] (07/07/2022): Added automatically from request for surgery [id number] RhD negative 11/04/2021 Recurring right L5-S1 disc h erniation with right S1 radiculopathy 08/26/2018 S/P right L4-5 and L5-S1 microdiscectomy on 01/1301/13/2018 Immunizations Immunization Administration Dates Next Due Influenza, Trivalent, IM (MDV) 07/06/2014 MMR 02/25/2022(Deferred: No longer n eeded) Pneumococcal Polysaccharide PPV23 09/16/2014 Rho (D) Immune Globulin 01/13/2017,09/15/2014 Tdap 07/06/2014 Surgical History Surgery Date Site/Laterality Comments BACK SURGERY lumbar- microdiscectomy Medical History Medical History Date Comments Lumbar herniated disc Lymphadenopathy Hypertension Anxiety Family History Medical History Relation Name Comments Drug abuse Brother Diabetes Maternal Grandfather Drug abuse Mother Heart disease Mother Cancer Paternal Grandfather maligna nt tumor of colon, lung & bone Relation Name Status Comments Brother Maternal Grandfather Mother Paternal Grandfather Social History Tobacco Use Types Packs/Day Years [...] on file Legal Sex Female 8:12 AM [employer] Gender Identity Not on file Sexual Orientation Not on file 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 ria 021 SAB 022 Term 39w 0d 1h 10m 0h 45m/0h 01m/0h 24m 2.596 kg (5 lb 11.6 oz) F Vag-S pont None N Livin g 7 9 WEHRL E,GIR LPAIG E Matson , Geoffr ey John , MD Complications:Precipitous La bor (<3 hours) Delivery Location:[facility] ([facility]) Last Filed Vital Signs Vital Sign Reading [...] 02/17/2022 4:35 PM CDT Plan of Treatment Health Maintenance Due Date Last Done Comments Cervical Cancer Screening 1993 Depression Screening 1993 Hepatitis C Screening 1993 Varicella Vaccines (1 of 2 - 13+ 2-dose series) 2006 Regular Well Visit/Exam 18-64 2011 Pneumococcal vaccine <65 (2 of 2 - PCV) 09/16/2015 09/16/2014 Influenza Vaccine (Season Ended) 2025 06/13/2016, 07/06/2014 DTaP/Tdap/Td Vaccine (8 - Td or Tdap) 10/06/2026 10/06/2016, 07/06/2014, 05/16/2008, Additional history exists Hepatitis B Screening Completed 1993 , 1993, 1993 HPV Vaccines Aged Out No longer eligi ble based on patient's age to complete this topic Insurance [facility] [employer] [employer] [employer] Advance Directives For more information, please contact: [phone] * Full Code (Latest Code Status on File) Date Activated Date Inactivated Comments 02/24/2022 5:06 AM 02/25/2022 4:41 PM * Full Code Date Activated Date Inactivated Comments 02/23/2022 6:35 PM 02/24/2022 5:06 AM Full CPR in case of cardiopulmonary arrest * Full Code Date Activated Date Inactivated Comments 02/23/2022 4:23 PM 02/23/2022 6:35 PM Full CPR in case of cardiopulmonary arrest Care Teams Bumboater Relationship Specialty Start Date End Date No, Physician PCP - General 10/04/17 Sunny Ritter MD [address] [place] [address] [place] [address] Security Supervisor Obstetrics and Gynecology 02/25/22
[2024-12-09 16:55] VITALS: BP 142/85; PULSE 87; RESP 14; TEMP 36.1; O2SAT 99
--- NOTE | 2024-12-09 18:12 | ED.GENADULT ---
HPI - General Adult General Chief complaint: Back Pain/Injury Stated complaint: Back Pain Source: patient Mode of arrival: ambulatory Limitations: no limitations History of Present Illness HPI narrative: Patient presents for evaluation of low back pain for the last 3 days. She cannot identify any precipitating cause or injury. She has had similar episodes of pain in the past. She has a history of herniated discs lumbar spine. She underwent microdiscectomy and has periods of time where she has flares of pain. Sometimes her pain resolves without intervention. Other times she has required steroids and/or pain medication. She has tried NSAIDs without improvement. In the past tramadol has caused headaches. She states the pain is rated 10/10 in severity. Pain radiates down the posterior aspect of the right lower extremity. She describes the pain is a burning sensation. Certain movements make her symptoms worse. Related Data Allergies Allergy/AdvReac Type Severity Reaction Status Date / Time No Known Allergies Allergy Verified 12/09/24 17:07 Review of Systems Review of Systems: CONSTITUTIONAL: Denies fever, chills, or sweats. EYES: Denies visual changes, redness, or discharge. ENT: Denies rhinorrhea, congestion, sore throat, or otalgia. CARDIOVASCULAR: Denies chest pain, palpitations, or edema. RESPIRATORY: Denies cough or dyspnea. GASTROINTESTINAL: Denies abdominal pain, nausea, vomiting, or diarrhea. GENITOURINARY: Denies dysuria or hematuria. SKIN: Denies rash or itching. MUSCULOSKELETAL: Reports low back pain with radiation to the right lower extremity. NEUROLOGIC: Denies headache, numbness, dizziness, or weakness. PSYCHIATRIC: Denies anxiety or depression. [facility] Past Medical History Medical History Lumbar herniated disc Surgical History Surgical History H/O microdiscectomy Family History Family History Mother Family history non-contributory Social History Social History Smoking packs per day: 0.5 Smoking cigarettes per day: 10.0 Smoking status: Current every day smoker Substance use: never Living arrangements: with family Gender identity (if verbalized by the patient): Female Spiritual care concerns: No Exam Narrative: GENERAL: Well-appearing, well-nourished, and in no acute distress. HEAD: Normocephalic, atraumatic. EYES: PERRLA and EOMI. ENT: Nares clear, no rhinorrhea or epistaxis. Mucous membranes moist. Oropharynx without tonsillar hypertrophy exudate or other lesions. Bilateral TMs pearly bobo nonbulging NECK: Supple. No adenopathy or masses. No carotid bruits or JVD CHEST: Clear to auscultation. No respiratory distress. No wheezes rales or rhonchi HEART: Regular rate and rhythm. No murmur heard. Normal peripheral pulses. ABDOMEN: Soft, nontender, nondistended, normal active bowel sounds. BACK: No tenderness in the midline of the lumbar spine. There is tenderness in the paraspinous muscles on the right of the lumbar spine. EXTREMITIES: Normal range of motion. No edema. SKIN: Warm, dry, no rash. NEURO: No focal deficits. Alert and oriented x3. PSYCH: Normal mood and affect. Course Course Emergency Course: This is a 29-year-old female who presented for evaluation of low back pain. She declined imaging is her current pain is consistent with that experienced previously with similar bouts of pain. We agreed to Medrol Dosepak, hydrocodone and Flexeril. Hydrocodone was given per paper prescription as it would not send electronically. She is not sexually active since her last period, 2 weeks ago, so test was not checked. She was advised to follow-up with her primary care provider and to go to the hospital for any worsening symptoms. Patient in agreement with plan of care Level of Care: Express Care Visit Vital Signs Vital signs: Vital Signs Temperature 36.1 C L 12/09/24 16:55 Pulse Rate 87 12/09/24 16:55 Respiratory Rate 14 12/09/24 16:55 Blood Pressure 142/85 H 12/09/24 16:55 Pulse Oximetry 99 12/09/24 16:55 Oxygen Delivery Room Air 12/09/24 16:55 Temperature 36.1 C L 12/09/24 16:55 Pulse Rate 87 12/09/24 16:55 Respiratory Rate 14 12/09/24 16:55 Blood Pressure 142/85 H 12/09/24 16:55 Pulse Oximetry 99 12/09/24 16:55 Oxygen Delivery Room Air 12/09/24 16:55 Medical Decision Making Vital Signs Vital Signs: Vital Signs Temperature 36.1 C L 12/09/24 16:55 Pulse Rate 87 12/09/24 16:55 Respiratory Rate 14 12/09/24 16:55 Blood Pressure 142/85 H 12/09/24 16:55 Pulse Oximetry 99 12/09/24 16:55 Oxygen Delivery Room Air 12/09/24 16:55 Temperature 36.1 C L 12/09/24 16:55 Pulse Rate 87 12/09/24 16:55 Respiratory Rate 14 12/09/24 16:55 Blood Pressure 142/85 H 12/09/24 16:55 Pulse Oximetry 99 12/09/24 16:55 Oxygen Delivery Room Air 12/09/24 16:55 Discharge Plan Discharge Clinical Impression: Sciatica Patient Disposition: Home Condition: Stable Instructions: Antibiotic Form, Sciatica (ED) Patient Language: Cook Islander Prescriptions: New methylprednisolone [Medrol (Dennis)] 4 mg tablets,dose pack See Rx Instructions .ROUTE .COMPLEX Qty: 21 0RF Rx Instructions: for 6 days cyclobenzaprine 10 mg tablet 10 mg PO TID PRN (Reason: muscle spasm) Qty: 15 0RF Follow-up/Referrals: Barbara,Haily Noriega MD [Primary Care Provider] - Time of Disposition: 18:11
== END 2024-12-09 18:16 | disposition home or self-care (01) ==
PROVIDERS: Emergency Provider Nurse Practitioner; PCP Family Medicine
DX: M54.30 Sciatica, unspecified side (principal); F17.210 Nicotine dependence, cigarettes, uncomplicated
CPT/HCPCS: 99213; G0463